=== PATIENT | male | born 1945 | race Hispanic/Latino ===

== ENCOUNTER 2019-10-26 11:30 | Inpatient (IN) | payer MEDICARE ==
[~2019-10-26] VITALS: Ht 170.2 cm; Wt 68.6 kg
[~2019-10-26 11:30] MED LIST: ALBUTEROL SULF8.5 GM NEB; ALBUTEROL0.63 MG/3; CLARITIN10 M1 PO; DIGOXIN125 MCG PO; LOVASTATIN40 MG PO; METOPROLOL TART50 MG PO; OCUVITE TABLET1 EAC1 PO; OMEPRAZOLE40 MG PO; PROBIOTIC DIGE1 EACH PO; VIBERZI PO; WARFARIN SODIUM3 MG PO; WARFARIN SODIUM4 MG PO
[2019-10-26] MEDS ORDERED: CEFTRIAXONE SOD 1 GM/NS 50 ML 50 ML IV STA (11:37)
[2019-10-26] MEDS ORDERED: IPRATROPIUM BROMIDE 0.02% 2.5 ML NEB NEB STA (11:37)
[2019-10-26] MEDS ORDERED: AZITHROMYCIN 500MG/NS 250 ML 250 ML IV STA (11:37)
[2019-10-26] MEDS ORDERED: ALBUTEROL SULF 0.083% NEB SOLN 3 ML NEB NEB STA (11:37)
[2019-10-26] MEDS ORDERED: METOPROLOL TARTRATE INJ 1 MG/ML VIAL IV ONE (11:45)
[2019-10-26] MEDS ORDERED: SODIUM CHLORIDE 0.9% 500ML 500 ML IV STA (11:53)
[2019-10-26] MEDS ORDERED: ONDANSETRON HCL INJ 2MG/ML 2ML 2 MG/ML VIAL IV STA (11:53)
[2019-10-26 12:14] LABS: BASOPHILS # (AUTO) 0.1 (0.0-0.1); BASOPHILS % 0.4 % (0.0-1.0); EOSINOPHILS # (AUTO) 0.1 (0.0-0.4); EOSINOPHILS % 0.6 % (0.0-6.0); HEMATOCRIT 45.5 % (38.2-49.6); HEMOGLOBIN 15.2 g/dL (14.0-18.0); LYMPHOCYTES # (AUTO) 1.1 (1.0-3.2); LYMPHOCYTES % 6.9 % (18.0-39.1); MEAN CORPUSCULAR HEMOGLOBIN 32.1 pg (28-32); MEAN CORPUSCULAR HGB CONC 33.4 g/dL (31-35); MONOCYTES % 6.4 % (4.4-11.3); NEUTROPHILS # (AUTO) 13.2 (2.1-6.9); NEUTROPHILS % 84.9 % (38.7-80.0); PLATELET COUNT 100 x10e3/uL (140-360); RED BLOOD COUNT 4.74 x10e6/uL (4.3-5.7)
--- NOTE | 2019-10-26 12:18 | Diagnostic Imaging Report ---
EXAMINATION: CHEST SINGLE (PORTABLE) INDICATION: Cough, shortness of breath COMPARISON: None FINDINGS: LINES/TUBES:EKG leads overlie the chest. LUNGS:The lungs are well-inflated. There is perihilar fullness and indistinctness of the pulmonary vasculature. No focal consolidation. No ronn pulmonary edema. PLEURA:No pleural effusion or pneumothorax. MEDIASTINUM:The cardiomediastinal silhouette is enlarged. BONES/SOFT TISSUES:No acute osseous injury. ABDOMEN:No free air under the diaphragm. IMPRESSION: Cardiomegaly and central pulmonary venous congestion without ronn airspace edema. Signed by: Jo Ann Marcos MD on 10/26/2019 12:15 PM
[2019-10-26] MEDS ORDERED: DILTIAZEM HCL 5 MG/ML 5 ML VIAL IV STA (12:24)
[2019-10-26] MEDS ORDERED: DILTIAZEM HCL 60 MG TAB PO SCH (12:30)
[2019-10-26 12:31] LABS: INR 1.34; PROTHROMBIN TIME 17.2 seconds (11.9-14.5)
[2019-10-26 12:32] LABS: PARTIAL THROMBOPLASTIN TIME 36.1 seconds (23.8-35.5)
[2019-10-26 12:37] LABS: CLARITY,URINE CLEAR (CLEAR); COLOR,URINE ORANGE (YELLOW)
[2019-10-26 12:38] LABS: BILIRUBIN,URINE SMALL (NEGATIVE); KETONES,URINE TRACE (NEGATIVE); LEUKOCYTE ESTERASE ,URINE NEGATIVE (NEGATIVE); NITRITE,URINE NEGATIVE (NEGATIVE); PROTEIN,URINE DIPSTICK 3+ (NEGATIVE); URINE UROBILINOGEN 0.2 mg/dL (0.2 - 1)
[2019-10-26 12:41] LABS: ALANINE AMINOTRANSFERASE 18 IU/L (0-55); ALBUMIN 4.2 g/dL (3.5-5.0); ALBUMIN/GLOBULIN RATIO 1.1 (0.8-2.0); ALKALINE PHOSPHATASE 191 IU/L (40-150); ANION GAP 17.8 mmol/L (8-16); BLOOD UREA NITROGEN 16 mg/dL (7-26); BUN/CREATININE RATIO 15 (6-25); CALCIUM 9.4 mg/dL (8.4-10.2); CARBON DIOXIDE 26 mmol/L (22-29); CHLORIDE 98 mmol/L (98-107); CREATINE KINASE 61 IU/L (30-200); CREATININE, SERUM 1.08 mg/dL (0.72-1.25); EST GLOMERULAR FILTRATION RATE > 60 ML/MIN (60-); GLUCOSE 138 mg/dL (74-118); POTASSIUM 3.8 mmol/L (3.5-5.1); SODIUM 138 mmol/L (136-145)
[2019-10-26 12:53] LABS: RBC,URINE 0-5 /HPF (0-5); WBC,URINE (MAN) 0-5 /HPF (0-5)
[2019-10-26 12:54] LABS: BACTERIA,URINE FEW /HPF; EPITHELIAL CELLS,URINE FEW /LPF
[2019-10-26 13:00] LABS: THYROID STIMULATING HORMONE 3.599 uIU/mL (0.350-4.940)
[2019-10-26] MEDS ORDERED: ONDANSETRON HCL INJ 2MG/ML 2ML 2 MG/ML VIAL IV PRN (13:00)
[2019-10-26] MEDS ORDERED: SODIUM CHLORIDE 0.9% 500ML 500 ML IV ONE (13:15)
--- NOTE | 2019-10-26 13:32 | Diagnostic Imaging Report ---
Exam: Head CT without contrast History: Dizziness Comparison studies: None Technique: Axial images were obtained from the skull base to the vertex. Coronal and sagittal images reconstructed from the axial data. Dose modulation, iterative reconstruction, and/or weight based adjustment of the mA/kV was utilized to reduce the radiation dose to as low as reasonably achievable. Radiation dose: Total DLP: 921 mGy*cm. Estimated effective dose: DLP x 0.015 Intravenous contrast: None Findings: Scalp: No abnormalities. Bones: No fractures, blastic or lytic lesions. Brain sulci: Mildly. Ventricles: Mild compensatory dilatation. No hydrocephalus. Extra-axial spaces: No masses, no fluid collection. Parenchyma: Chronic cortical/subcortical left inferior parietal infarct in the distal left MCA territory centered along the angular gyrus with encephalomalacia and gliosis. Mild age-related hypodense changes present in the periventricular white matter. Sellar/suprasellar region: No abnormalities. Craniocervical junction: Patent foramen magnum. No Chiari one malformation. Included paranasal sinuses: Clear. Middle ear mastoid cavities: Clear. Incidental findings: Atherosclerotic calcifications in the carotid siphons. IMPRESSION: No acute intracranial abnormalities. Chronic findings: 1. Mild generalized parenchymal volume loss. 2. Chronic left inferior parietal infarct. Signed by: Dr. Timothy See M.D. on 10/26/2019 1:29 PM
--- NOTE | 2019-10-26 13:54 | NUR ---
lactic redrawn and to lab
[2019-10-26] MEDS ORDERED: MECLIZINE HCL 12.5 MG TAB PO ONE (14:00)
[2019-10-26] MEDS: CEFEPIME 2 GM/NS 0.9% 100 ML 100 ML IV SCH (14:13)
[2019-10-26] MEDS ORDERED: DIGOXIN INJ 0.25 MG/ML 2 ML AMP IV NR (14:30)
--- NOTE | 2019-10-26 14:31 | NUR ---
REPEAT LACTIC 2.7 PER LAB MD AWARE
[2019-10-26] MEDS ORDERED: SODIUM CHLORIDE 0.9% 1000ML 1,000 ML ONE (14:41)
[2019-10-26] MEDS ORDERED: SODIUM CHLORIDE 0.9% 1000ML 1,000 ML IV SCH ×2 (14:45→15:55)
--- NOTE | 2019-10-26 14:52 | NUR ---
warm blankets provided and oxygen placed on patient due to oxygen saturation of 95 percent while patient sleeping.
[2019-10-26] MEDS ORDERED: AMIODARONE HCL 150 MG/100 ML BAG IV NR (17:45)
[2019-10-26] MEDS ORDERED: AMIODARONE HCL 900 MG in DEXTROSE 5% 500ML 500 ML IV ONE (18:00)
--- NOTE | 2019-10-26 19:03 | NUR ---
Lala montanez in [facility] - 10/26/19 at 1905 by IRENA report given to Suraj KLINE
--- NOTE | 2019-10-26 19:05 | NUR ---
report given to Reese MOBLEY
--- NOTE | 2019-10-26 19:05 | NUR ---
Lala montanez in [facility] - 10/26/19 at 1905 by IRENA report given to Natan MOBLEY
[2019-10-26 19:08] LABS: CREATINE KINASE MB 0.9 ng/mL (0-5.0)
--- NOTE | 2019-10-26 19:44 | Diagnostic Imaging Report ---
ADDENDUM #1 7.0 cm elliptical shaped fluid collection with Hounsfield units of 10 along the posterior inferior right heart border abutting the diaphragm of unknown clinical significance. This has a nonaggressive appearance and does not appear to be an abscess. This could be due to a benign cystic structure like a duplication cyst or a lymphangioma. Signed by: Dr. iMkael Garcia M.D. on 10/27/2019 10:59 AM ORIGINAL REPORT EXAM: CT Chest WITHOUT contrast INDICATION: Atrial fibrillation. Shortness of breath COMPARISON: 10/26/2019 TECHNIQUE: Chest was scanned utilizing a multidetector helical scanner from the lung apex through the level of the adrenal glands without administration of IV contrast. Absence of intravenous contrast decreases sensitivity for detection of lymphadenopathy and vascular pathology. Coronal and sagittal reformations were obtained. Routine protocol was performed. IV CONTRAST: None COMPLICATIONS: None RADIATION DOSE: Total DLP: 473 mGy*cm Estimated effective dose: (DLP x 0.014 x size factor) mSv CTDIvol has been reviewed. It is below the limits set by the Radiation Protocol Committee (RPC). Dose modulation, iterative reconstruction, and/or weight based adjustment of the mA/kV was utilized to reduce the radiation dose to as low as reasonably achievable. FINDINGS: LINES/ TUBES: None. LUNGS AND AIRWAYS: Groundglass nodular densities in the left upper lung and in the posterior inferior right upper lobe along the fissure could be due to multifocal pneumonia. Chronic appearing change with regions of what appear to be scarring/atelectasis and hyperinflation. Airways are normal. PLEURA: The pleural spaces are clear. HEART AND MEDIASTINUM: The thyroid gland is normal. No mediastinal, hilar or axillary lymphadenopathy. Cardiomegaly with pulmonary vascular congestion. Prosthetic mitral valve with associated artifact. Scattered atherosclerotic calcification of the coronary arteries, aorta and branch vessels. There is no pericardial effusion. 7.0 cm elliptical shaped fluid collection with Hounsfield units of 10 along the posterior inferior right heart border abutting the diaphragm of unknown clinical significance. UPPER ABDOMEN: Small hiatal hernia. BONES: Ankylosis of the spine.. SOFT TISSUES: Unremarkable. IMPRESSION: Cardiomegaly with pulmonary vascular congestion. Groundglass nodular densities in the left upper lung and in the posterior inferior right upper lobe along the fissure could be due to multifocal pneumonia. Chronic appearing change with regions of what appear to be scarring/atelectasis and hyperinflation 7.0 cm elliptical shaped fluid collection with Hounsfield units of 10 along the posterior inferior right heart border abutting the diaphragm of unknown clinical significance. Signed by: Dr. Mikael Garcia M.D. on 10/26/2019 7:41 PM
[2019-10-26] MEDS: ENOXAPARIN SOD INJ 40 MG/0.4 ML SYR SC SCH (19:46)
[2019-10-26] MEDS ORDERED: METOPROLOL TAR100 MG PO (19:49)
[2019-10-26] MEDS ORDERED: FUROSEMIDE40 MG PO (19:50)
[2019-10-26] MEDS ORDERED: eye vitamin PO (19:50)
[2019-10-26] MEDS ORDERED: BENEFIBER1 EAC2 PO (19:57)
[2019-10-26] MEDS ORDERED: AVODART0.5 MG PO (19:57)
[2019-10-26] MEDS ORDERED: ATORVASTATIN CA20 MG PO (19:57)
[2019-10-26] MEDS ORDERED: ACYCLOVIR400 MG PO (19:57)
[2019-10-26] MEDS ORDERED: ALBUTEROL0.63 MG/3 INH (19:57)
[2019-10-26] MEDS ORDERED: SYSTANE 0.3-0.415 ML OU (19:57)
[2019-10-26] MEDS ORDERED: COUMADIN3 MG PO ×2 (19:57)
[2019-10-26] MEDS ORDERED: QUETIAPINE FUMA25 MG PO (19:57)
[2019-10-26] MEDS ORDERED: tylenol arthritis PO (19:57)
[2019-10-26] MEDS ORDERED: PROTONIX20 MG PO (19:57)
[2019-10-26] MEDS ORDERED: FAMOTIDINE 20 MG/2 ML VIAL IV SCH (20:00)
[2019-10-26] MEDS ORDERED: ALBUTEROL SULF 0.083% NEB SOLN 3 ML NEB INH SCH (21:30)
[2019-10-26] MEDS: FUROSEMIDE INJ 10 MG/ML 4 ML VIAL IV SCH (21:31)
[2019-10-26] MEDS ORDERED: ALBUTEROL/IPRATROPIUM 3 ML NEB NEB PRN (23:00)
[2019-10-26 23:21] VITALS: BP 134/87
[2019-10-27] VITALS (8 sets, daily range): BP systolic 108–134; BP diastolic 72–87
--- NOTE | 2019-10-27 00:50 | Consultation ---
DATE OF CONSULTATION: 10/26/2019 Cardiology consult HISTORY OF PRESENT ILLNESS: Mr. Alan Crandall is a 74-year-old male with primary history of mitral valve regurgitation status post mitral clip, atrial fibrillation, on home warfarin, hyperlipidemia, admitted, complaining of shortness of breath. Productive cough accompanied with dizziness and generalized weakness that started 12 hours prior to admission. The patient denies chest pain, nausea or vomiting. The patient denies fever or chills, however, the patient reports contact with sick family members. PAST MEDICAL HISTORY: Mitral valve regurgitation with mitral click, atrial fibrillation, hyperlipidemia. PAST SURGICAL HISTORY: He had a hernia repair and right eye procedure done. SOCIAL HISTORY: Tobacco use long time ago or has stopped long time ago. No alcohol use or any recreational drug use. CURRENT HOME MEDICATIONS: Include: 1. Atorvastatin. 2. Metoprolol 100 mg b.i.d. 3. Furosemide 40 mg b.i.d. 4. Warfarin. 5. Atorvastatin 20 mg daily. 6. Pantoprazole 40 mg daily. PHYSICAL EXAMINATION: VITAL SIGNS: Includes temperature 96.9, pulse is 120, respiratory rate 18, and pulse oximetry were 99% on oxygen 2 L. GENERAL: The patient is well-developed, well-nourished. Mild respiratory distress noted. SKIN: Normal in appearance, texture, and temperature. Warm and dry. EXTREMITIES: Cool to touch. HEENT: Cranium is normocephalic, atraumatic. Pupils are equally round, reactive to light and accommodation. Sclerae are nonicteric. Ears are normal. Mucosa moist. Full range of motion. NECK: Supple. No thyromegaly. JVP measures 8 cm with the patient at 45 degrees. RESPIRATORY: Dyspneic on exertion. LUNGS: Diminished breath sounds all throughout lung sheikh with decreased air entry at the bases. CARDIOVASCULAR: Irregular rate and rhythm. 2/6 diastolic murmur. GASTROINTESTINAL: Soft and tympanic. Mildly distended. Bowel sounds hypoactive. EXTREMITIES: No cyanosis, no edema. Pulses +1 throughout. IMPRESSION: 1. Cardiac dysrhythmia, atrial fibrillation with RVR. History of atrial fibrillation on warfarin. History of mitral valve regurgitation with mitral clip. 2. Acute congestive heart failure with recent echocardiogram showed EF of 35%. BNP 837. Chest x-ray reveals cardiomegaly and central pulmonary venous congestion. PLAN: Mr. Alan Crandall is a 74-year-old admitted with acute heart failure and atrial fibrillation. 1. We will start him on AV bill blockers for rate control and we will start antiarrhythmic amiodarone drip for rhythm control. Restart him on anticoagulation warfarin. 2. Monitor on telemetry. Monitor intake and output and electrolytes, and report any instability of hemodynamics. Further cardiac workup depending on clinical course. Thank you for your consultation. We will continue to follow this patient. Dictated by Roxane De Leon, SHARMIN MD JIMMIE Smith/MODL /[id number]
[2019-10-27] MEDS: ALBUTEROL/IPRATROPIUM 3 ML NEB NEB SCH ×4 (01:15→19:20)
[2019-10-27] MEDS: CEFEPIME 2 GM/NS 0.9% 100 ML 100 ML IV SCH ×2 (02:28→14:48)
[2019-10-27 05:32] LABS: BASOPHILS # (AUTO) 0.1 (0.0-0.1); BASOPHILS % 0.6 % (0.0-1.0); EOSINOPHILS # (AUTO) 0.1 (0.0-0.4); EOSINOPHILS % 0.5 % (0.0-6.0); HEMATOCRIT 48.5 % (38.2-49.6); HEMOGLOBIN 15.4 g/dL (14.0-18.0); LYMPHOCYTES # (AUTO) 2.1 (1.0-3.2); LYMPHOCYTES % 13.6 % (18.0-39.1); MEAN CORPUSCULAR HEMOGLOBIN 31.4 pg (28-32); MEAN CORPUSCULAR HGB CONC 31.8 g/dL (31-35); MONOCYTES # (AUTO) 1.9 (0.2-0.8); MONOCYTES % 12.3 % (4.4-11.3); NEUTROPHILS # (AUTO) 11.4 (2.1-6.9); NEUTROPHILS % 72.2 % (38.7-80.0); PLATELET COUNT 86 x10e3/uL (140-360); RED CELL DISTRIBUTION WIDTH 15.2 % (11.7-14.4)
[2019-10-27 05:39] LABS: INR 1.46; PROTHROMBIN TIME 18.3 seconds (11.9-14.5)
[2019-10-27 05:52] LABS: CREATINE KINASE MB 1.7 ng/mL (0-5.0)
[2019-10-27 06:09] LABS: ALANINE AMINOTRANSFERASE 18 IU/L (0-55); ALBUMIN 3.8 g/dL (3.5-5.0); ALBUMIN/GLOBULIN RATIO 1.1 (0.8-2.0); ALKALINE PHOSPHATASE 159 IU/L (40-150); ANION GAP 18.8 mmol/L (8-16); BLOOD UREA NITROGEN 18 mg/dL (7-26); BUN/CREATININE RATIO 17 (6-25); CALCIUM 8.8 mg/dL (8.4-10.2); CARBON DIOXIDE 21 mmol/L (22-29); CHLORIDE 102 mmol/L (98-107); CHOLESTEROL 157 MD/DL (0-199); CREATININE, SERUM 1.08 mg/dL (0.72-1.25); EST GLOMERULAR FILTRATION RATE > 60 ML/MIN (60-); GLUCOSE 140 mg/dL (74-118); HDL CHOLESTEROL 52 MG/DL (40-60); LDL CHOLESTEROL 86 MG/DL (60-130); POTASSIUM 3.8 mmol/L (3.5-5.1); SODIUM 138 mmol/L (136-145); TRIGLYCERIDES 93 MG/DL (0-149)
[2019-10-27] MEDS ORDERED: ONDANSETRON HCL 4 MG ORAL DISINTEGRATING TAB PO PRN (08:15)
[2019-10-27] MEDS ORDERED: DIGOXIN 0.125 MG TAB PO SCH (09:00)
[2019-10-27] MEDS ORDERED: FUROSEMIDE INJ 10 MG/ML 4 ML VIAL IV ONE (09:30)
[2019-10-27] MEDS: AZITHROMYCIN 500MG/NS 250 ML 250 ML IV SCH (09:57)
[2019-10-27] MEDS: ENOXAPARIN SOD INJ 40 MG/0.4 ML SYR SC SCH ×2 (09:57→17:09)
[2019-10-27] MEDS: METOPROLOL TARTRATE 25 MG TAB PO SCH ×2 (09:57→17:09)
[2019-10-27] MEDS: ACETAMINOPHEN 325 MG TAB PO PRN ×2 (09:57→22:16)
[2019-10-27] MEDS: FUROSEMIDE INJ 10 MG/ML 4 ML VIAL IV SCH ×2 (09:57→21:30)
[2019-10-27] MEDS ORDERED: WARFARIN SOD 2 MG TAB PO SCH ×3 (17:00)
--- NOTE | 2019-10-27 17:09 | History and Physical ---
PRIMARY CARE PHYSICIAN: Boubacar Rodrigez MD. CONSULTANTS: 1. Timothy Talbot MD. 2. Indio Boyce MD. CHIEF COMPLAINT: Rapid ventricular rate, atrial fibrillation. Cough and fever. HISTORY OF PRESENT ILLNESS: A 74-year-old male, who all of a sudden developed some illness with upper respiratory symptoms, but also had palpitation, increasing heart rate. The patient had his eye treatment with his computer lab aide. The patient is otherwise stable. He was having some cough and shortness of breath. He came to the emergency room for evaluation. In the emergency room, the patient had a rapid ventricular rate response. Heart rate in the 120-130. Did not have any fever until this morning. The patient's CT of the chest showed multilobar pneumonia associated with a possible right posterior heart border 7.0 cm fluid collection, possible cyst. The patient is having some cough. He does have pulmonary vascular congestion. Because of his sepsis, lactic acid level was elevated and leukocytosis. The patient was given some IV fluids. The patient is otherwise stable at this time. PAST MEDICAL HISTORY: Coronary artery disease with previous stent. Mitral valve regurgitation with mitral valve repair. Hiatal hernia with hiatal hernia repair. Atrial fibrillation, hypertension, anticoagulant therapy, reflux, osteoarthritis, dyslipidemia. PAST SURGICAL HISTORY: Mitral valve surgical clip. Coronary stent. SOCIAL HISTORY: The patient does not smoke or use alcohol. No recreational drugs. ALLERGIES: NO KNOWN ALLERGIES. HOME MEDICATIONS: List is reviewed. REVIEW OF SYSTEMS: As mentioned above. PHYSICAL EXAMINATION: VITAL SIGNS: Temperature is 99, blood pressure 125/84, pulse rate 133, respirations 22. GENERAL: The patient is comfortable. He is not in any distress. HEENT: Normocephalic and atraumatic. Anicteric. NECK: Supple grossly. PULMONARY: Diminished breath sounds bilaterally with coarses. CARDIOVASCULAR: Atrial fibrillation with rapid rate. EXTREMITIES: No cyanosis or edema. NEUROLOGIC: No gross focal deficit. LABORATORY DATA: Sodium is 138, potassium 3.8, chloride 102, bicarb 21, BUN 18, creatinine 1.0, glucose 140. WBC is 15.7, hemoglobin 15.4, hematocrit 48.5, and platelets is 86. INR is 1.46. IMPRESSION: 1. Sepsis without shock. 2. Multifocal pneumonia. 3. Atrial fibrillation with rapid ventricular rate response. 4. Acute on chronic congestive heart failure most likely we will check echocardiogram, pending. 5. Incidental finding of possible posterior border of the right heart 7.0 cm fluid collection, possible cyst. PLAN: Home medication. Antibiotics. Consultation with Dr. Timothy Talbot. Consultation with Dr. Indio Boyce. Repeated lab work. Check platelet. Monitor platelets closely for any bleed. We will follow up on the patient's status. Nebulizer treatment. Antitussive and Tylenol as needed. MD GIULIANA Rushing/DOYLE /[id number]
--- NOTE | 2019-10-27 17:55 | Consultation ---
DATE OF CONSULTATION: 10/27/2019 Pulmonary Consultation REASON FOR CONSULT: Abnormal CT chest. HISTORY OF PRESENT ILLNESS: Mr. Crandall is a 74-year-old male who presented to the emergency room with complaints of shortness of breath. He has a history of mitral valve regurgitation, has mitral clip, atrial fibrillation. He reported productive cough and generalized weakness. He has been started on IV antibiotics for possibility of pneumonia. CT chest was done, which showed an incidental finding of a cystic structure on the right side of the lung next to the spine. He denies any procedures or surgeries on the right side of the lung. REVIEW OF SYSTEMS: GENERAL: Denies any fever or chills. HEAD: Denies any head trauma. ENT: Denies any earache. CVS: Denies any chest pain. RESPIRATORY: Shortness of breath. GI: Denies any nausea or vomiting. The rest of the review of systems are negative except as in HPI. PAST MEDICAL HISTORY: Mitral regurgitation, status post mitral clip, atrial fibrillation, hypertension. FAMILY AND SOCIAL HISTORY: He does not smoke and does not drink. He smoked 20 years in his life. PHYSICAL EXAMINATION: VITAL SIGNS: Temperature 97.8, pulse of 133, blood pressure 125/84. CHEST: Few crackles in the bases, otherwise clear. HEART: S1, S2 audible. ABDOMEN: Mildly distended. Bowel sounds audible. EXTREMITIES: No pedal edema. NEUROLOGIC: He is awake and alert. LABORATORY DATA: White count 15,000, hemoglobin 15.4, platelets 86. Chemistries within normal limits. Initially, he came in and his lactic acid was 2.7, now it is 1.8. CT chest, I reviewed the images. ASSESSMENT: Mr. Crandall is a 74-year-old male who came in with shortness of breath, possibility of pneumonia, sepsis, and atrial fibrillation. PLAN: Incidental finding of a cystic structure on the right medial border of the lung in the posterior mediastinal area. I have discussed with Radiology about a CT-guided drainage. However, Dr. Mcdonald from [facility] told me that it is a simple cyst and he does not have any suspicion for abscess and he would not recommend drainage of that cyst. This was conveyed to Dr. Lazaro who is the primary physician. Possibly, will need followup in few weeks in the office and repeat of CAT scan if the cyst still persist. We will again have discussion with the patient about possible drainage versus observation. Continue antibiotics for pneumonia. Thank you for this consult. MD YOLIE Nicole/DOYLE /[id number]
[2019-10-27] MEDS: AMIODARONE HCL 900 MG in DEXTROSE 5% 500ML 500 ML IV SCH (21:23)
[2019-10-28] VITALS (8 sets, daily range): BP systolic 106–136; BP diastolic 71–120
[2019-10-28] MEDS: ALBUTEROL/IPRATROPIUM 3 ML NEB NEB SCH ×2 (00:45→07:29)
[2019-10-28] MEDS: CEFEPIME 2 GM/NS 0.9% 100 ML 100 ML IV SCH ×2 (02:15→14:20)
[2019-10-28 07:44] LABS: INR 1.63; PROTHROMBIN TIME 19.9 seconds (11.9-14.5)
[2019-10-28] MEDS ORDERED: METOPROLOL TARTRATE INJ 1 MG/ML VIAL IV PRN (09:00)
[2019-10-28] MEDS ORDERED: AMIODARONE HCL 150 MG/100 ML BAG IV ONE (09:00)
[2019-10-28] MEDS ORDERED: METOPROLOL TARTRATE INJ 1 MG/ML VIAL ONE (09:06)
[2019-10-28] MEDS: ENOXAPARIN SOD INJ 40 MG/0.4 ML SYR SC SCH (09:30)
[2019-10-28] MEDS: AZITHROMYCIN 500MG/NS 250 ML 250 ML IV SCH (09:47)
[2019-10-28] MEDS: METOPROLOL TARTRATE 25 MG TAB PO SCH ×2 (09:47→18:10)
[2019-10-28] MEDS: FUROSEMIDE INJ 10 MG/ML 4 ML VIAL IV SCH ×2 (09:47→20:23)
[2019-10-28] MEDS ORDERED: AMIODARONE HCL 100 ML IV ONE (10:00)
[2019-10-28] MEDS: DILTIAZEM HCL 30 MG TAB PO SCH ×3 (13:10→23:29)
[2019-10-28] MEDS: LEVALBUTEROL HCL SOLN NEBU 1.25 MG/3 ML NEB INH SCH ×2 (13:40→19:30)
[2019-10-28] MEDS: ACETAMINOPHEN 325 MG TAB PO PRN ×2 (15:19→20:50)
[2019-10-28] MEDS: ENOXAPARIN INJ 80 MG/0.8 ML SYR SC SCH (18:09)
[2019-10-28] MEDS: AMIODARONE HCL 900 MG in DEXTROSE 5% 500ML 500 ML IV SCH (20:23)
--- NOTE | 2019-10-28 20:33 | NUR ---
patient in bed, vitals checked, still AFIB, HR is on 120s -130s at this time, non symptomatics, denied any discomfort,Amiodarone drip is on going. will continue to monitor.
[2019-10-29] VITALS (8 sets, daily range): BP systolic 106–135; BP diastolic 54–103
[2019-10-29] MEDS: CEFEPIME 2 GM/NS 0.9% 100 ML 100 ML IV SCH ×2 (02:24→14:16)
[2019-10-29] MEDS: LEVALBUTEROL HCL SOLN NEBU 1.25 MG/3 ML NEB INH SCH ×4 (02:25→19:11)
[2019-10-29] MEDS: ENOXAPARIN INJ 80 MG/0.8 ML SYR SC SCH ×2 (05:10→19:15)
[2019-10-29] MEDS: DILTIAZEM HCL 30 MG TAB PO SCH ×5 (05:11→23:37)
[2019-10-29 05:30] LABS: BASOPHILS # (AUTO) 0.1 (0.0-0.1); BASOPHILS % 0.5 % (0.0-1.0); EOSINOPHILS # (AUTO) 0.4 (0.0-0.4); EOSINOPHILS % 3.3 % (0.0-6.0); HEMATOCRIT 37.5 % (38.2-49.6); HEMOGLOBIN 12.5 g/dL (14.0-18.0); LYMPHOCYTES # (AUTO) 0.8 (1.0-3.2); LYMPHOCYTES % 7.1 % (18.0-39.1); MEAN CORPUSCULAR HEMOGLOBIN 31.6 pg (28-32); MEAN CORPUSCULAR HGB CONC 33.3 g/dL (31-35); MEAN CORPUSCULAR VOLUME 94.7 fL (81-99); MONOCYTES # (AUTO) 1.7 (0.2-0.8); MONOCYTES % 14.5 % (4.4-11.3); NEUTROPHILS # (AUTO) 8.6 (2.1-6.9); NEUTROPHILS % 73.6 % (38.7-80.0); PLATELET COUNT 89 x10e3/uL (140-360); RED BLOOD COUNT 3.96 x10e6/uL (4.3-5.7); RED CELL DISTRIBUTION WIDTH 15.1 % (11.7-14.4)
[2019-10-29 05:49] LABS: ANION GAP 14.9 mmol/L (8-16); BLOOD UREA NITROGEN 16 mg/dL (7-26); BUN/CREATININE RATIO 19 (6-25); CALCIUM 8.7 mg/dL (8.4-10.2); CARBON DIOXIDE 36 mmol/L (22-29); CHLORIDE 91 mmol/L (98-107); CREATININE, SERUM 0.85 mg/dL (0.72-1.25); EST GLOMERULAR FILTRATION RATE > 60 ML/MIN (60-); GLUCOSE 131 mg/dL (74-118); SODIUM 139 mmol/L (136-145)
[2019-10-29 05:54] LABS: POTASSIUM 2.9 mmol/L (3.5-5.1)
--- NOTE | 2019-10-29 06:01 | NUR ---
called and left a message to dr Lazaro, regarding potassium level this morning is 2.9; awaiting for the MD to call back.
[2019-10-29 06:12] LABS: MAGNESIUM 1.5 MG/DL (1.3-2.1); PHOSPHORUS 1.8 MG/DL (2.3-4.7)
--- NOTE | 2019-10-29 06:59 | NUR ---
called and spoke to dr Lazaro regarding potassium level this morning, the MD gave orders for potassium replacements. orders carried out.
[2019-10-29 07:18] LABS: PLATELET ESTIMATE MODERATELY DECREASED
[2019-10-29 07:19] LABS: PLATELET MORPHOLOGY COMMENT FEW LARGE
[2019-10-29] MEDS ORDERED: POTASSIUM CHLORIDE 20 MEQ TAB CR PO ONE ×2 (07:30→09:30)
--- NOTE | 2019-10-29 09:49 | Diagnostic Imaging Report ---
Examination: Single AP view of the chest. COMPARISON: CT October 26, 2019 INDICATION: cough DISCUSSION: Lines/tubes: None. Lungs: Scattered nodular airspace opacities. Pleura: No pleural effusion or pneumothorax. Heart and mediastinum: Cardiomegaly. Right pericardiac fluid collection better seen on prior CT. Bones and soft tissues: No acute bony abnormalities. IMPRESSION: Scattered bronchopneumonia Signed by: Dr. Karl Ulrich M.D. on 10/29/2019 9:46 AM
[2019-10-29] MEDS: AZITHROMYCIN 500MG/NS 250 ML 250 ML IV SCH (10:03)
[2019-10-29] MEDS: FUROSEMIDE INJ 10 MG/ML 4 ML VIAL IV SCH ×2 (10:03→21:34)
[2019-10-29] MEDS: METOPROLOL TARTRATE 25 MG TAB PO SCH ×3 (10:08→19:23)
[2019-10-29] MEDS ORDERED: OXYMETAZOLINE HCL 0.05% NAS 1 SPRAY BTL PRN (10:45)
[2019-10-29] MEDS ORDERED: GUAIFENESIN 200 MG/10 ML UDC PO PRN (13:15)
[2019-10-29] MEDS ORDERED: SODIUM CHLORIDE 0.9% 250ML 250 ML ONE (14:11)
[2019-10-29] MEDS: ACETAMINOPHEN 325 MG TAB PO PRN (14:16)
--- NOTE | 2019-10-29 15:23 | Consultation ---
DATE OF CONSULTATION: 10/28/2019 REASON FOR CONSULTATION: Atrial fibrillation. HISTORY OF PRESENT ILLNESS: This is a 74-year-old gentleman with history of hypertension and history of atrial fibrillation. He states he has been out of rhythm and was diagnosed with atrial fibrillation about 8 years ago, he presented at this time complaining of progressive shortness of breath, found to have multilobar pneumonia and found to have atrial fibrillation with rapid ventricular response. Clinically receiving amiodarone and anticoagulation. Still having heart rate in the 130. The patient states he has never had any particular treatment for atrial fibrillation. Has not seen an electrical assembly technician in the past. REVIEW OF SYSTEMS: CONSTITUTIONAL: As per HPI. CARDIOVASCULAR: As per HPI. RESPIRATORY: Negative. GASTROINTESTINAL: Negative. GENITOURINARY: Negative. MUSCULOSKELETAL: Negative. EYES: Negative. ENT: Negative. ALLERGY/IMMUNOLOGY: Negative. PSYCHIATRIC: Negative. PAST MEDICAL HISTORY: Atrial fibrillation and hypertension. PAST SURGICAL HISTORY: Negative. SOCIAL HISTORY: Denies alcohol. PHYSICAL EXAMINATION: VITAL SIGNS: Blood pressure 118/60, pulse 120, respiration 22, and O2 sats 96%. GENERAL: No acute distress. HEENT: Moist mucous membranes. CARDIOVASCULAR: Irregular. RESPIRATORY: Crackles at the bases and rhonchi. ABDOMEN: Soft and nontender. MUSCULOSKELETAL: 2+ pulses. NEUROLOGIC: No focal deficits. SKIN: No lesions. PSYCHIATRIC: Normal thought process. LABORATORY DATA: EKG, atrial fibrillation with rapid ventricular response. IMPRESSION: 1. Atrial fibrillation, persistent with rapid ventricular response. 2. Multilobar pneumonia. RECOMMENDATIONS: I had a long discussion with the patient. At this time, he was not clear the duration of the atrial fibrillation. However, the patient confirms he has been in atrial fibrillation for about 8 years, which means he has chronic longstanding arrhythmia, which seems to be exacerbated and worsened by current presence of pneumonia, so recommendation is to go for rate control strategy only, no indication for achieving brain rhythm control at this time at least for now. We will go ahead and add Cardizem 30 mg q.6 hours for better rate control, also once the infection is better controlled, hopefully the heart rate will be better controlled and he will feel better. We will follow up closely in clinic in 1-2 weeks for reassessment. Continue anticoagulation. Thank you for letting us participate in Mr. Crandall's health care. MD CHELSEA Rubalcava/DOYLE /[id number]
[2019-10-29] MEDS: GUAIFENESIN 600 MG TAB PO SCH (19:16)
[2019-10-29] MEDS: GUAIFENESIN/CODEINE 10 ML CUP PO PRN (23:37)
[2019-10-30] VITALS (8 sets, daily range): BP systolic 99–137; BP diastolic 67–89
[2019-10-30] MEDS: LEVALBUTEROL HCL SOLN NEBU 1.25 MG/3 ML NEB INH SCH ×5 (01:00→23:58)
[2019-10-30] MEDS: GUAIFENESIN 600 MG TAB PO SCH ×6 (01:00→18:28)
[2019-10-30] MEDS: CEFEPIME 2 GM/NS 0.9% 100 ML 100 ML IV SCH ×2 (02:47→15:20)
[2019-10-30] MEDS: AMIODARONE HCL 900 MG in DEXTROSE 5% 500ML 500 ML IV SCH (05:15)
[2019-10-30] MEDS: DILTIAZEM HCL 30 MG TAB PO SCH ×4 (05:35→23:16)
[2019-10-30] MEDS: ENOXAPARIN INJ 80 MG/0.8 ML SYR SC SCH ×2 (05:35→17:08)
[2019-10-30 06:36] LABS: BASOPHILS # (AUTO) 0.1 (0.0-0.1); BASOPHILS % 0.6 % (0.0-1.0); EOSINOPHILS # (AUTO) 0.5 (0.0-0.4); EOSINOPHILS % 3.9 % (0.0-6.0); HEMOGLOBIN 13.2 g/dL (14.0-18.0); LYMPHOCYTES # (AUTO) 1.7 (1.0-3.2); LYMPHOCYTES % 14.8 % (18.0-39.1); MEAN CORPUSCULAR HEMOGLOBIN 31.9 pg (28-32); MEAN CORPUSCULAR HGB CONC 33.8 g/dL (31-35); MEAN CORPUSCULAR VOLUME 94.2 fL (81-99); MONOCYTES # (AUTO) 1.8 (0.2-0.8); MONOCYTES % 15.8 % (4.4-11.3); NEUTROPHILS # (AUTO) 7.3 (2.1-6.9); NEUTROPHILS % 63.6 % (38.7-80.0); PLATELET COUNT 116 x10e3/uL (140-360); RED BLOOD COUNT 4.14 x10e6/uL (4.3-5.7); RED CELL DISTRIBUTION WIDTH 15.2 % (11.7-14.4)
[2019-10-30 07:03] LABS: ANION GAP 16.7 mmol/L (8-16); BLOOD UREA NITROGEN 16 mg/dL (7-26); BUN/CREATININE RATIO 20 (6-25); CALCIUM 8.9 mg/dL (8.4-10.2); CARBON DIOXIDE 33 mmol/L (22-29); CHLORIDE 90 mmol/L (98-107); EST GLOMERULAR FILTRATION RATE > 60 ML/MIN (60-); GLUCOSE 102 mg/dL (74-118); POTASSIUM 3.7 mmol/L (3.5-5.1); SODIUM 136 mmol/L (136-145)
[2019-10-30] MEDS: FUROSEMIDE INJ 10 MG/ML 4 ML VIAL IV SCH ×2 (09:32→20:21)
[2019-10-30] MEDS: AZITHROMYCIN 500MG/NS 250 ML 250 ML IV SCH (09:33)
[2019-10-30] MEDS: METOPROLOL TARTRATE 25 MG TAB PO SCH ×2 (09:37→17:07)
[2019-10-30] MEDS ORDERED: AMIODARONE HCL 200 MG TAB PO ONE (10:30)
[2019-10-30 16:05] LABS: EOSINOPHILS % (MANUAL) 4 % (0-7); LYMPHOCYTES % (MANUAL) 12 % (19-48); MONOCYTES % (MANUAL) 15 % (3.4-9.0); NEUTROPHILS % (MANUAL) 69 % (40-74); PLATELET ESTIMATE SLIGHTLY DECREASED; PLATELET MORPHOLOGY COMMENT NORMAL; RBC MORPHOLOGY COMMENT NORMAL
[2019-10-30] MEDS: WARFARIN SOD 1 MG TAB PO SCH (17:06)
[2019-10-30] MEDS: GUAIFENESIN/CODEINE 10 ML CUP PO PRN ×2 (18:28→19:07)
--- NOTE | 2019-10-30 19:00 | NUR ---
Report received from Shweta Schrader RN. Pt received resting in bed with eyes open, AAOX4, pt reports no pain or discomfort at this time, no signs of distress noted, pt on room air, SPO2 94%, pts at the bedside, care plan reviewed.
[2019-10-30] MEDS: AMIODARONE HCL 200 MG TAB PO SCH (19:07)
--- NOTE | 2019-10-30 20:21 | NUR ---
Lasix IVP given per md orders at this time, refer to Ambrosio. Medication name, purpose, and desired effects explained to the pts and his .
--- NOTE | 2019-10-30 23:30 | NUR ---
Pt resting in bed with eyes open, reports no pain or discomfort at this time, no signs of distress noted.
[2019-10-31] VITALS (7 sets, daily range): BP systolic 110–128; BP diastolic 65–81
[2019-10-31] MEDS: CEFEPIME 2 GM/NS 0.9% 100 ML 100 ML IV SCH ×2 (02:49→13:16)
--- NOTE | 2019-10-31 02:49 | NUR ---
IV antibiotic hung at this time, medication explained to the pt. Refer to Ambrosio for further details.
[2019-10-31] MEDS: GUAIFENESIN 600 MG TAB PO SCH ×4 (05:21→23:31)
[2019-10-31] MEDS: ENOXAPARIN INJ 80 MG/0.8 ML SYR SC SCH ×2 (05:21→16:07)
[2019-10-31] MEDS: DILTIAZEM HCL 30 MG TAB PO SCH ×4 (05:21→23:31)
--- NOTE | 2019-10-31 05:21 | NUR ---
Morning medications administered including, cardizem, mucinex, and lovenox. Medications named, purpose and desire effect explained, to pts /and to pt. Lovenox administered in pts left lower abdomen.
[2019-10-31 05:29] LABS: BASOPHILS # (AUTO) 0.1 (0.0-0.1); BASOPHILS % 0.9 % (0.0-1.0); EOSINOPHILS # (AUTO) 0.7 (0.0-0.4); EOSINOPHILS % 6.5 % (0.0-6.0); HEMATOCRIT 38.6 % (38.2-49.6); HEMOGLOBIN 13.2 g/dL (14.0-18.0); LYMPHOCYTES # (AUTO) 1.8 (1.0-3.2); LYMPHOCYTES % 17.4 % (18.0-39.1); MEAN CORPUSCULAR HGB CONC 34.2 g/dL (31-35); MEAN CORPUSCULAR VOLUME 93.7 fL (81-99); MONOCYTES # (AUTO) 1.6 (0.2-0.8); MONOCYTES % 15.9 % (4.4-11.3); NEUTROPHILS # (AUTO) 5.9 (2.1-6.9); NEUTROPHILS % 57.4 % (38.7-80.0); PLATELET COUNT 130 x10e3/uL (140-360); RED BLOOD COUNT 4.12 x10e6/uL (4.3-5.7); RED CELL DISTRIBUTION WIDTH 15.3 % (11.7-14.4)
[2019-10-31 05:40] LABS: INR 1.2; PROTHROMBIN TIME 15.5 seconds (11.9-14.5)
[2019-10-31 05:46] LABS: ANION GAP 17.2 mmol/L (8-16); BLOOD UREA NITROGEN 18 mg/dL (7-26); BUN/CREATININE RATIO 23 (6-25); CALCIUM 9.1 mg/dL (8.4-10.2); CARBON DIOXIDE 34 mmol/L (22-29); CHLORIDE 91 mmol/L (98-107); CREATININE, SERUM 0.78 mg/dL (0.72-1.25); EST GLOMERULAR FILTRATION RATE > 60 ML/MIN (60-); GLUCOSE 105 mg/dL (74-118); POTASSIUM 3.2 mmol/L (3.5-5.1); SODIUM 139 mmol/L (136-145)
[2019-10-31] MEDS: LEVALBUTEROL HCL SOLN NEBU 1.25 MG/3 ML NEB INH SCH ×3 (06:55→19:20)
[2019-10-31] MEDS: AMIODARONE HCL 200 MG TAB PO SCH ×2 (08:02→16:07)
[2019-10-31] MEDS: FUROSEMIDE INJ 10 MG/ML 4 ML VIAL IV SCH ×2 (08:02→20:32)
[2019-10-31] MEDS: AZITHROMYCIN 500MG/NS 250 ML 250 ML IV SCH (08:02)
[2019-10-31] MEDS: METOPROLOL TARTRATE 25 MG TAB PO SCH ×3 (08:03→20:32)
[2019-10-31] MEDS ORDERED: POTASSIUM CHLORIDE 10MEQ EA PO ONE (09:15)
[2019-10-31] MEDS: WARFARIN SOD 1 MG TAB PO SCH (16:07)
[2019-10-31] MEDS ORDERED: AMIODARONE HCL 150 MG/100 ML BAG IV ONE (16:45)
[2019-10-31] MEDS ORDERED: AMIODARONE HCL 100 ML IV ONE (17:30)
--- NOTE | 2019-10-31 17:59 | NUR ---
Dr. Boyce informed of low potassium, replacement ordered. PT evaluation ordered as well. Pt ambulated in hallway with walker with Physical Therapy. At rest pt's heart rate is elevated in 120's. Dr. Lee aware and Dr. Chamorro aware. Orders given for amiodarone bolus and increase in Cardizem. Will continue to monitor the patient.
[2019-11-01] VITALS (11 sets, daily range): BP systolic 98–131; BP diastolic 72–86
[2019-11-01] MEDS: LEVALBUTEROL HCL SOLN NEBU 1.25 MG/3 ML NEB INH SCH ×4 (00:20→19:30)
[2019-11-01] MEDS: CEFEPIME 2 GM/NS 0.9% 100 ML 100 ML IV SCH ×3 (02:04→23:37)
[2019-11-01] MEDS: ENOXAPARIN INJ 80 MG/0.8 ML SYR SC SCH ×2 (04:12→17:00)
[2019-11-01] MEDS: GUAIFENESIN 600 MG TAB PO SCH ×4 (05:31→23:37)
[2019-11-01] MEDS: DILTIAZEM HCL 30 MG TAB PO SCH ×4 (05:31→23:44)
[2019-11-01 06:14] LABS: HEMOGLOBIN 13.2 g/dL (14.0-18.0); RED BLOOD COUNT 4.12 x10e6/uL (4.3-5.7)
[2019-11-01 06:15] LABS: HEMATOCRIT 38.6 % (38.2-49.6); LYMPHOCYTES % 18.9 % (18.0-39.1); MEAN CORPUSCULAR HGB CONC 34.2 g/dL (31-35); MEAN CORPUSCULAR VOLUME 93.7 fL (81-99); MONOCYTES % 13.2 % (4.4-11.3); NEUTROPHILS % 58.1 % (38.7-80.0); PLATELET COUNT 151 x10e3/uL (140-360); RED CELL DISTRIBUTION WIDTH 15.1 % (11.7-14.4)
[2019-11-01 06:16] LABS: BASOPHILS % 0.7 % (0.0-1.0); EOSINOPHILS % 6.5 % (0.0-6.0)
[2019-11-01 07:21] LABS: ANION GAP 16.2 mmol/L (8-16); BLOOD UREA NITROGEN 18 mg/dL (7-26); BUN/CREATININE RATIO 21 (6-25); CALCIUM 9.1 mg/dL (8.4-10.2); CARBON DIOXIDE 32 mmol/L (22-29); CHLORIDE 91 mmol/L (98-107); CREATININE, SERUM 0.87 mg/dL (0.72-1.25); EST GLOMERULAR FILTRATION RATE > 60 ML/MIN (60-); GLUCOSE 105 mg/dL (74-118); POTASSIUM 3.2 mmol/L (3.5-5.1); SODIUM 136 mmol/L (136-145)
[2019-11-01 08:14] LABS: BASOPHILS # (AUTO) 0.1 (0.0-0.1); EOSINOPHILS # (AUTO) 0.7 (0.0-0.4); LYMPHOCYTES # (AUTO) 2.1 (1.0-3.2); MONOCYTES # (AUTO) 1.5 (0.2-0.8); NEUTROPHILS # (AUTO) 6.4 (2.1-6.9)
[2019-11-01] MEDS: FUROSEMIDE INJ 10 MG/ML 4 ML VIAL IV SCH ×2 (08:40→20:14)
[2019-11-01] MEDS: AMIODARONE HCL 200 MG TAB PO SCH ×2 (08:40→17:00)
[2019-11-01] MEDS: AZITHROMYCIN 500MG/NS 250 ML 250 ML IV SCH (08:40)
[2019-11-01] MEDS: METOPROLOL TARTRATE 25 MG TAB PO SCH ×3 (08:40→20:15)
[2019-11-01] MEDS ORDERED: POTASSIUM CHLORIDE 20 MEQ TAB CR PO NR (09:00)
[2019-11-01] MEDS ORDERED: BENZONATATE 100 MG CAP PO PRN (09:00)
[2019-11-01] MEDS ORDERED: POTASSIUM CHLORIDE 10MEQ EA PO NR (11:00)
[2019-11-01] MEDS ORDERED: WARFARIN SOD 2 MG TAB PO NR ×2 (11:00→18:00)
[2019-11-01] MEDS: BENZONATATE 100 MG CAP PO SCH ×3 (11:49→20:15)
[2019-11-02] VITALS (9 sets, daily range): BP systolic 91–111; BP diastolic 62–75
[2019-11-02] MEDS: LEVALBUTEROL HCL SOLN NEBU 1.25 MG/3 ML NEB INH SCH ×4 (01:00→19:40)
[2019-11-02] MEDS: DILTIAZEM HCL 30 MG TAB PO SCH ×4 (04:45→23:30)
[2019-11-02] MEDS: ENOXAPARIN INJ 80 MG/0.8 ML SYR SC SCH ×2 (04:45→17:36)
[2019-11-02] MEDS: GUAIFENESIN 600 MG TAB PO SCH ×4 (04:45→23:30)
[2019-11-02 05:27] LABS: BASOPHILS # (AUTO) 0.1 (0.0-0.1); BASOPHILS % 0.8 % (0.0-1.0); EOSINOPHILS # (AUTO) 0.9 (0.0-0.4); HEMATOCRIT 38.6 % (38.2-49.6); HEMOGLOBIN 12.7 g/dL (14.0-18.0); LYMPHOCYTES # (AUTO) 1.8 (1.0-3.2); LYMPHOCYTES % 15.1 % (18.0-39.1); MEAN CORPUSCULAR HEMOGLOBIN 31.4 pg (28-32); MEAN CORPUSCULAR HGB CONC 32.9 g/dL (31-35); MEAN CORPUSCULAR VOLUME 95.5 fL (81-99); MONOCYTES # (AUTO) 1.4 (0.2-0.8); MONOCYTES % 11.8 % (4.4-11.3); NEUTROPHILS # (AUTO) 7.4 (2.1-6.9); PLATELET COUNT 165 x10e3/uL (140-360); RED BLOOD COUNT 4.04 x10e6/uL (4.3-5.7); RED CELL DISTRIBUTION WIDTH 15.1 % (11.7-14.4)
[2019-11-02 05:33] LABS: INR 1.14; PROTHROMBIN TIME 14.9 seconds (11.9-14.5)
[2019-11-02 05:38] LABS: ANION GAP 14.1 mmol/L (8-16); BLOOD UREA NITROGEN 17 mg/dL (7-26); BUN/CREATININE RATIO 17 (6-25); CARBON DIOXIDE 32 mmol/L (22-29); CHLORIDE 93 mmol/L (98-107); CREATININE, SERUM 1.01 mg/dL (0.72-1.25); EST GLOMERULAR FILTRATION RATE > 60 ML/MIN (60-); GLUCOSE 105 mg/dL (74-118); POTASSIUM 4.1 mmol/L (3.5-5.1); SODIUM 135 mmol/L (136-145)
[2019-11-02 08:05] LABS: EOSINOPHILS % (MANUAL) 9 % (0-7); LYMPHOCYTES % (MANUAL) 15 % (19-48); MONOCYTES % (MANUAL) 12 % (3.4-9.0); NEUTROPHILS % (MANUAL) 64 % (40-74); PLATELET ESTIMATE ADEQUATE; PLATELET MORPHOLOGY COMMENT NORMAL; RBC MORPHOLOGY COMMENT NORMAL
[2019-11-02] MEDS ORDERED: WARFARIN SOD 5 MG TAB PO ONE (09:00)
[2019-11-02] MEDS: FUROSEMIDE INJ 10 MG/ML 4 ML VIAL IV SCH ×2 (09:16→20:17)
[2019-11-02] MEDS: AZITHROMYCIN 500MG/NS 250 ML 250 ML IV SCH (09:17)
[2019-11-02] MEDS: METOPROLOL TARTRATE 25 MG TAB PO SCH ×3 (09:17→21:12)
[2019-11-02] MEDS: BENZONATATE 100 MG CAP PO SCH ×3 (09:17→21:12)
[2019-11-02] MEDS: AMIODARONE HCL 200 MG TAB PO SCH ×2 (09:17→17:36)
[2019-11-02] MEDS: CEFEPIME 2 GM/NS 0.9% 100 ML 100 ML IV SCH (14:23)
--- NOTE | 2019-11-02 15:33 | NUR ---
Nutrition Screen Note RD Recommendation for Physician: - Continue current diet Plan of Care: RD following, monitoring for tolerance and adequacy Nutrition reason for involvement: LOS Primary Diagnose(s): Afib RVR, bronchitis PMH: CAD with stent, MVR, hiatal hernia with repair, Afib, HTN, reflux, OA, dyslipidemia Ht: 67 in Wt: 158 lb BMI: 24.7 kg/m2 IBW: [address] Assessment: (11/02) 74 YOM admitted for Afib with RVR, seen today per LOS. Pt's at bedside provided translation. Pt reports good appetite and po intake. Pt denies wt loss, reports UBW of 154#- no wt loss noted. Pt denies any difficulties chewing or swallowing. Pt denies any N/V/C/D. Pt and with no questions or concerns at time of visit. Pt discussed during am rounds. Chart reviewed. Labs and meds reviewed. Will monitor and continue to follow. Current Diet: Cardiac Malnutrition Evaluation (11/02/19) The patient does not meet criteria for a specified degree of malnutrition at this time. Will re-evaluate at follow-up as appropriate. Diet Education Needs Assessment: Diet education not indicated. Diet tolerance: tolerating po Nutrition Care Level: low Signed: Юлия Mcwilliams RD, LD, [facility]
--- NOTE | 2019-11-02 20:15 | NUR ---
patient in the recliner, awake alert oriented, on bed side, meds scheduled given, vitals checked, no distress noted and denied any discomfort at this time, will continue to monitor.
[2019-11-03] MEDS: LEVALBUTEROL HCL SOLN NEBU 1.25 MG/3 ML NEB INH SCH ×4 (01:30→19:41)
[2019-11-03] MEDS: CEFEPIME 2 GM/NS 0.9% 100 ML 100 ML IV SCH ×2 (01:30→14:34)
[2019-11-03 04:04] VITALS: BP 113/62
[2019-11-03] MEDS: DILTIAZEM HCL 30 MG TAB PO SCH ×3 (05:20→16:33)
[2019-11-03] MEDS: ENOXAPARIN INJ 80 MG/0.8 ML SYR SC SCH ×2 (05:20→16:26)
[2019-11-03] MEDS: GUAIFENESIN 600 MG TAB PO SCH ×3 (05:20→16:33)
[2019-11-03 05:56] LABS: INR 1.12; PROTHROMBIN TIME 14.7 seconds (11.9-14.5)
[2019-11-03 08:00] VITALS: BP 111/52
[2019-11-03] MEDS ORDERED: WARFARIN SOD 5 MG TAB PO ONE (09:30)
[2019-11-03] MEDS: AMIODARONE HCL 200 MG TAB PO SCH ×2 (10:03→16:26)
[2019-11-03] MEDS: BENZONATATE 100 MG CAP PO SCH ×3 (10:03→21:30)
[2019-11-03] MEDS: METOPROLOL TARTRATE 25 MG TAB PO SCH ×3 (10:03→21:30)
[2019-11-03 11:30] VITALS: BP 147/68
[2019-11-03] MEDS: FUROSEMIDE 40 MG TAB PO SCH (11:32)
[2019-11-03 16:00] VITALS: BP 117/61
--- NOTE | 2019-11-03 16:27 | NUR ---
PT SIGNED CHOICE FOR [facility]. STATES HAS WHEELCHAIR AND WALKER DOES NOT NEED ANY DME. FAXED CLINICALS TO [phone]. WILL NEED TO FAX DISCHARGE SUMMARY UPON DISCHARGE.
[2019-11-03 20:00] VITALS: BP 118/76
[2019-11-04] VITALS (7 sets, daily range): BP systolic 108–143; BP diastolic 56–82
[2019-11-04] MEDS: GUAIFENESIN 600 MG TAB PO SCH ×4 (00:25→17:33)
[2019-11-04] MEDS: DILTIAZEM HCL 30 MG TAB PO SCH ×2 (00:29→05:49)
[2019-11-04] MEDS: LEVALBUTEROL HCL SOLN NEBU 1.25 MG/3 ML NEB INH SCH ×4 (01:30→20:00)
[2019-11-04] MEDS ORDERED: SODIUM CHLORIDE 0.9% 250ML 250 ML ONE (01:48)
[2019-11-04] MEDS: CEFEPIME 2 GM/NS 0.9% 100 ML 100 ML IV SCH (02:01)
[2019-11-04 05:11] LABS: BASOPHILS # (AUTO) 0.1 (0.0-0.1); EOSINOPHILS # (AUTO) 0.6 (0.0-0.4); EOSINOPHILS % 5.5 % (0.0-6.0); HEMATOCRIT 38.9 % (38.2-49.6); HEMOGLOBIN 13.1 g/dL (14.0-18.0); LYMPHOCYTES # (AUTO) 1.7 (1.0-3.2); MEAN CORPUSCULAR HEMOGLOBIN 31.3 pg (28-32); MEAN CORPUSCULAR HGB CONC 33.7 g/dL (31-35); MEAN CORPUSCULAR VOLUME 93.1 fL (81-99); MONOCYTES # (AUTO) 1.4 (0.2-0.8); NEUTROPHILS % 60.6 % (38.7-80.0); PLATELET COUNT 182 x10e3/uL (140-360); RED BLOOD COUNT 4.18 x10e6/uL (4.3-5.7); RED CELL DISTRIBUTION WIDTH 14.7 % (11.7-14.4)
[2019-11-04 05:19] LABS: INR 1.21; PROTHROMBIN TIME 16.1 seconds (11.9-14.5)
[2019-11-04 05:28] LABS: ANION GAP 14.5 mmol/L (8-16); BLOOD UREA NITROGEN 20 mg/dL (7-26); BUN/CREATININE RATIO 19 (6-25); CARBON DIOXIDE 31 mmol/L (22-29); CHLORIDE 93 mmol/L (98-107); CREATININE, SERUM 1.07 mg/dL (0.72-1.25); EST GLOMERULAR FILTRATION RATE > 60 ML/MIN (60-); GLUCOSE 100 mg/dL (74-118); POTASSIUM 3.5 mmol/L (3.5-5.1); SODIUM 135 mmol/L (136-145)
[2019-11-04] MEDS: ENOXAPARIN INJ 80 MG/0.8 ML SYR SC SCH ×2 (05:40→17:33)
[2019-11-04] MEDS: AMIODARONE HCL 200 MG TAB PO SCH ×2 (08:54→17:32)
[2019-11-04] MEDS: FUROSEMIDE 40 MG TAB PO SCH ×2 (08:54→12:24)
[2019-11-04] MEDS: BENZONATATE 100 MG CAP PO SCH ×3 (08:54→19:52)
[2019-11-04] MEDS: METOPROLOL TARTRATE 25 MG TAB PO SCH ×3 (08:55→19:52)
[2019-11-04] MEDS ORDERED: WARFARIN SOD 5 MG TAB PO ONE ×2 (09:15→17:00)
[2019-11-04] MEDS: DILTIAZEM HCL 180 MG CAP ER PO SCH (10:44)
--- NOTE | 2019-11-04 16:39 | NUR ---
RD received consult for nutrition education regarding diet and warfarin Nutrition Education Learner(s): pt, family member Barriers: no barriers identified Cultural/Language Modifications: Pt only speaks German. German handout was provided to patient. Family member at bedside translated information provided to patient. Readiness: acceptance Method: explanation/ discussion, handout Topics: Vitamin K and warfarin Understanding/Compliance: pt and family member verbalized understanding Signed: Luciana Prakash RD, [place]
[2019-11-04] MEDS: POTASSIUM CHLORIDE 10MEQ EA PO SCH (17:32)
--- NOTE | 2019-11-04 22:00 | NUR ---
patient received to room 291 via wheelchair from [facility] at this time. vss. no c/o pain noted. telemetry continues to A fib. noted at the bedside. patient/ instructed to call for assistance when needed.
[2019-11-05] MEDS: LEVALBUTEROL HCL SOLN NEBU 1.25 MG/3 ML NEB INH SCH ×4 (01:20→18:45)
[2019-11-05 04:45] VITALS: BP 116/78
[2019-11-05] MEDS: ENOXAPARIN INJ 80 MG/0.8 ML SYR SC SCH ×2 (05:00→17:06)
[2019-11-05] MEDS: GUAIFENESIN 600 MG TAB PO SCH ×4 (05:28→17:23)
--- NOTE | 2019-11-05 07:00 | NUR ---
PATIENT IS AWAKE, ALERT, AND IN STABLE CONDITION WITH NO S/S OF RESPIRATORY DISTRESS. PATIENT DENIES PAIN. TELEMETRY APPLIED. PATIENT REFUSING ASSISTANCE OUT OF BED; PRESENT IN THE ROOM. CALL LIGHT IS WITHIN REACH, PATIENT INSTRUCTED TO CALL FOR ASSISTANCE NEEDED.
[2019-11-05 07:35] LABS: INR 1.32; PROTHROMBIN TIME 17.3 seconds (11.9-14.5)
[2019-11-05 07:36] VITALS: BP 144/66
[2019-11-05 07:43] VITALS: BP 144/66
[2019-11-05] MEDS: FUROSEMIDE 40 MG TAB PO SCH ×2 (09:17→12:12)
[2019-11-05] MEDS: AMIODARONE HCL 200 MG TAB PO SCH ×2 (09:18→17:05)
[2019-11-05] MEDS: DILTIAZEM HCL 180 MG CAP ER PO SCH (09:18)
[2019-11-05] MEDS: METOPROLOL TARTRATE 25 MG TAB PO SCH ×3 (09:20→20:32)
[2019-11-05] MEDS: POTASSIUM CHLORIDE 10MEQ EA PO SCH ×2 (09:20→17:06)
[2019-11-05] MEDS: BENZONATATE 100 MG CAP PO SCH ×3 (09:21→20:32)
[2019-11-05] MEDS ORDERED: WARFARIN SOD 5 MG TAB PO NR (11:15)
[2019-11-05 11:26] VITALS: BP 108/66
[2019-11-05 15:08] VITALS: BP 108/58
--- NOTE | 2019-11-05 18:50 | NUR ---
PATIENT IN STABLE CONDITION WITH NO S/S OF RESPIRATORY DISTRESS- NO PAIN VOICED. TELEMETRY APPLIED. PRESENT IN ROOM. CALL LIGHT IS WITHIN REACH, PATIENT INSTRUCTED TO CALL FOR ASSISTANCE NEEDED. BEDSIDE SHIFT REPORT GIVEN TO ONCOMING NURSE.
--- NOTE | 2019-11-05 19:15 | NUR ---
patient received awake, alert, sitting up in chair. noted at patients side. no c/o pain noted. respirations even and unlabored. patient/ instructed to call for assistance when needed.
[2019-11-05 20:00] VITALS: BP 129/66
[2019-11-06] VITALS (8 sets, daily range): BP systolic 102–149; BP diastolic 62–76
[2019-11-06] MEDS: LEVALBUTEROL HCL SOLN NEBU 1.25 MG/3 ML NEB INH SCH ×4 (00:22→19:30)
[2019-11-06] MEDS: ENOXAPARIN INJ 80 MG/0.8 ML SYR SC SCH ×2 (05:00→17:53)
[2019-11-06] MEDS: GUAIFENESIN 600 MG TAB PO SCH ×4 (05:54→17:53)
--- NOTE | 2019-11-06 07:10 | NUR ---
PATIENT IS IN STABLE CONDITION WITH NO S/S OF RESPIRATORY DISTRESS. NO PAIN VOICED. TELEMETRY APPLIED. PRESENT IN THE ROOM. CALL LIGHT IS WITHIN REACH OF PATIENT- PATIENT INSTRUCTED TO CALL FOR ASSISTANCE NEEDED.
[2019-11-06 07:19] LABS: INR 1.67; PROTHROMBIN TIME 20.9 seconds (11.9-14.5)
[2019-11-06] MEDS: FUROSEMIDE 40 MG TAB PO SCH ×2 (08:35→12:10)
[2019-11-06] MEDS: BENZONATATE 100 MG CAP PO SCH ×3 (08:36→20:56)
[2019-11-06] MEDS: POTASSIUM CHLORIDE 10MEQ EA PO SCH ×2 (08:36→16:24)
[2019-11-06] MEDS: METOPROLOL TARTRATE 25 MG TAB PO SCH ×3 (08:36→20:56)
[2019-11-06] MEDS: DILTIAZEM HCL 180 MG CAP ER PO SCH (08:36)
[2019-11-06] MEDS: AMIODARONE HCL 200 MG TAB PO SCH ×2 (08:36→16:24)
[2019-11-06] MEDS ORDERED: WARFARIN SOD 2.5 MG TAB PO NR (10:00)
--- NOTE | 2019-11-06 15:10 | NUR ---
Visit made by the Spiritual Care Department Pastoral Visitor, Ozzie Horne. PV provided pastoral presence, hospitality, communion, and supportive listening. Pastoral Visitor informed pt/family of the scope of [employer] and availability. YAHAIRA JENNINGS Service Cashier Spiritual Care Department O: [phone] Pager: [phone] ([phone] number calling from)
--- NOTE | 2019-11-06 19:20 | NUR ---
walking rounds complete, pt alert resp even and no c/o pain when asked, at bedside, call light in reach.
--- NOTE | 2019-11-06 19:21 | NUR ---
PATIENT IS SITTING IN THE CHAIR- IN STABLE CONDITION WITH NO S/S OF RESPIRATORY DISTRESS. NO PAIN VOICED. TELEMETRY APPLIED. PRESENT IN THE ROOM. CALL LIGHT IS WITHIN REACH OF PATIENT- PATIENT INSTRUCTED TO CALL FOR ASSISTANCE NEEDED. BEDSIDE SHIFT REPORT GIVEN TO ONCOMING NURSE.
[2019-11-07] VITALS: BP 113/66
[2019-11-07] MEDS: LEVALBUTEROL HCL SOLN NEBU 1.25 MG/3 ML NEB INH SCH ×3 (00:05→13:12)
[2019-11-07] MEDS: GUAIFENESIN 600 MG TAB PO SCH ×3 (00:05→12:09)
--- NOTE | 2019-11-07 02:32 | NUR ---
pt in upright position, resting comfortably, family member at bedside, no distress noted call light in reach.
[2019-11-07 04:00] VITALS: BP 124/69
[2019-11-07] MEDS: ENOXAPARIN INJ 80 MG/0.8 ML SYR SC SCH ×2 (05:03→13:50)
[2019-11-07 05:54] LABS: BASOPHILS # (AUTO) 0.1 (0.0-0.1); BASOPHILS % 1.2 % (0.0-1.0); EOSINOPHILS # (AUTO) 0.4 (0.0-0.4); EOSINOPHILS % 4.4 % (0.0-6.0); HEMATOCRIT 42.1 % (38.2-49.6); HEMOGLOBIN 13.8 g/dL (14.0-18.0); LYMPHOCYTES % 20.8 % (18.0-39.1); MEAN CORPUSCULAR HEMOGLOBIN 31.6 pg (28-32); MEAN CORPUSCULAR HGB CONC 32.8 g/dL (31-35); MEAN CORPUSCULAR VOLUME 96.3 fL (81-99); MONOCYTES # (AUTO) 1.1 (0.2-0.8); MONOCYTES % 11.2 % (4.4-11.3); NEUTROPHILS # (AUTO) 5.6 (2.1-6.9); NEUTROPHILS % 57.7 % (38.7-80.0); PLATELET COUNT 251 x10e3/uL (140-360); RED BLOOD COUNT 4.37 x10e6/uL (4.3-5.7); RED CELL DISTRIBUTION WIDTH 14.9 % (11.7-14.4)
[2019-11-07 06:08] LABS: INR 1.89; PROTHROMBIN TIME 23.1 seconds (11.9-14.5)
[2019-11-07 06:34] LABS: ANION GAP 15.7 mmol/L (8-16); BLOOD UREA NITROGEN 22 mg/dL (7-26); BUN/CREATININE RATIO 22 (6-25); CALCIUM 9.3 mg/dL (8.4-10.2); CARBON DIOXIDE 30 mmol/L (22-29); CHLORIDE 97 mmol/L (98-107); CREATININE, SERUM 0.99 mg/dL (0.72-1.25); EST GLOMERULAR FILTRATION RATE > 60 ML/MIN (60-); GLUCOSE 97 mg/dL (74-118); POTASSIUM 4.7 mmol/L (3.5-5.1); SODIUM 138 mmol/L (136-145)
--- NOTE | 2019-11-07 07:17 | NUR ---
bedside rounding, complete , pt stable at shift change.
[2019-11-07 07:45] VITALS: BP 122/72
[2019-11-07 08:17] VITALS: BP 122/72
[2019-11-07] MEDS: FUROSEMIDE 40 MG TAB PO SCH ×2 (08:25→12:00)
[2019-11-07] MEDS: AMIODARONE HCL 200 MG TAB PO SCH (08:26)
[2019-11-07] MEDS: DILTIAZEM HCL 180 MG CAP ER PO SCH (08:26)
[2019-11-07] MEDS: POTASSIUM CHLORIDE 10MEQ EA PO SCH (08:26)
[2019-11-07] MEDS: BENZONATATE 100 MG CAP PO SCH (08:27)
[2019-11-07] MEDS: METOPROLOL TARTRATE 25 MG TAB PO SCH (08:27)
[2019-11-07] MEDS ORDERED: WARFARIN SOD 5 MG TAB PO NR (10:30)
[2019-11-07] MEDS ORDERED: TESSALON PERLE100 MG PO (11:13)
[2019-11-07] MEDS ORDERED: ZOFRAN4 MG PO (11:13)
[2019-11-07] MEDS ORDERED: WARFARIN SODIUM3 MG PO (11:14)
[2019-11-07] MEDS ORDERED: LOPRESSOR25 MG PO (11:15)
[2019-11-07] MEDS ORDERED: WARFARIN SODIUM2 MG PO (11:15)
[2019-11-07] MEDS ORDERED: DILTIAZEM 24HR180 M1 PO (11:17)
[2019-11-07] MEDS ORDERED: AMIODARONE HCL100 MG PO (11:18)
[2019-11-07] MEDS ORDERED: K DUR10 MEQ PO (11:18)
[2019-11-07 11:45] VITALS: BP 114/62
--- NOTE | 2019-11-07 14:24 | NUR ---
Patient discharged home, Dose of Lovenox and Coumadin 7.5mg given, prescription and discharge instruction given, Patient and his aware about f/up appointment tomorrow in Dr Yaron Talbot's office, IV canula removed with tip intact, no ss of infiltration noted, denies any pain, no distress, transported via wheelchair to [facility]
[2019-11-07] MEDS ORDERED: WARFARIN SOD 2.5 MG TAB PO ONE (14:35)
--- NOTE | 2019-11-08 03:21 | Discharge Summary ---
PRIMARY CARE PHYSICIAN: Dr. Boubacar Rodrigez. CONSULTANTS: 1. Dr. Indio Boyce. 2. Dr. Jay Chamorro. 3. Dr. Timothy Talbot. FINAL DIAGNOSES: 1. Atrial fibrillation with rapid ventricular rate response. 2. Acute on chronic systolic dysfunction, congestive heart failure. 3. Status post bronchial pneumonia. 4. Anticoagulant therapy for atrial fibrillation. 5. History of valvular disease. SUMMARY: The patient is a 74-year-old male, who came to the hospital with increasing shortness of breath. The patient also has rapid ventricular rate with atrial fibrillation, he has also cough and fever. The patient started on antibiotics. Chest x-ray and CT scan showed multifocal pneumonia, bronchial pneumonia and the patient was started on treatment. He was septic lactic acid level fever and rapid heart rate. The patient at baseline with mitral valve surgical clips and also heart coronary stent. He was subtherapeutic on his anticoagulant therapy on admission. The patient placed on IV amiodarone drip and subsequently on oral medication. The patient is otherwise stable at this time. I discussed with the patient at length. On admission, the patient's INR was 1.34. The patient was on inadequate warfarin level. The patient now is on 7.5 during the hospitalization and his INR today is 1.89. He is getting Lovenox as well. The patient is completing the course of his antibiotic treatment. He is getting Lovenox and also amiodarone along with that his rate control medication has been adjusted. At this time, he is stable. He will go home today. He will get the warfarin and the Lovenox prior to discharge today. I instructed the patient to follow up with Dr. Timothy Talbot tomorrow for PT/INR check. The patient is otherwise stable. On his home medication, he will continue with the following. All his medication will continue except for metoprolol 100 mg which has been adjusted. He was on alternating 1.5 and 3 mg of the warfarin instruction, but that will be stopped for now. New prescription is Tessalon Perles as needed for cough, Zofran as needed for nausea and vomiting, Lopressor 50 mg twice a day, diltiazem CD 180 mg daily, potassium 10 mEq b.i.d., amiodarone 200 mg daily. For his warfarin, he will take combine of 5 and 2 mg to make it 7 mg daily. The patient will need to have his warfarin adjustment. The patient is otherwise stable. Discussed with the patient and spouse at length and also the patient's son as well. The patient has been cleared for discharge. MD GIULIANA Rushing/DOYLE /[id number]
== END 2019-11-07 14:19 | disposition home or self-care (01) | DRG 871 ==
LOC: ER 11:30 → ERHOLD 12:53 → IMCU 22:44 → MED/SURG3 11-04 21:57
PROVIDERS: ADMIT Internal Medicine; ATTEND Internal Medicine
DX: A41.9 Sepsis, unspecified organism (principal); J15.9 Unspecified bacterial pneumonia; I50.33 Acute on chronic diastolic (congestive) heart failure; I48.20 Chronic atrial fibrillation, unspecified; J20.9 Acute bronchitis, unspecified; I25.2 Old myocardial infarction; E78.5 Hyperlipidemia, unspecified; N40.0 Benign prostatic hyperplasia without lower urinary tract symptoms; Z79.01 Long term (current) use of anticoagulants; K21.9 Gastro-esophageal reflux disease without esophagitis; J98.4 Other disorders of lung; Z95.5 Presence of coronary angioplasty implant and graft; Z95.818 Presence of other cardiac implants and grafts; I11.0 Hypertensive heart disease with heart failure
CPT/HCPCS: 36415; 70450; 71045; 71250; 80048; 80053; 80061; 81001; 82550; 82553; 82948; 83605; 83735; 83880; 84100; 84443; 84484; 85025; 85610; 85730; 87040; 87086; 87400; 93005; 93306; 93880; 94640; 94660; 96366; 97139; 99285; J0456; J0696; J1650; J1940; J2405; J7030; J7040; J7050; J7060; Q0162

== ENCOUNTER 2019-11-11 14:19 | Inpatient (IN) | payer MEDICARE ==
[~2019-11-11] VITALS: Ht 153.9 cm; Wt 71.9 kg
[~2019-11-11 14:19] MED LIST changes: +ACYCLOVIR400 MG PO; +ALBUTEROL0.63 MG/3 INH; +AMIODARONE HCL100 MG PO; +ATORVASTATIN CA20 MG PO; +AVODART0.5 MG PO; +BENEFIBER1 EAC2 PO; +COUMADIN3 MG PO; +DILTIAZEM 24HR180 M1 PO; +FUROSEMIDE40 MG PO; +K DUR10 MEQ PO; +LOPRESSOR25 MG PO; +METOPROLOL TAR100 MG PO; +PROTONIX20 MG PO; +QUETIAPINE FUMA25 MG PO; +SYSTANE 0.3-0.415 ML OU; +TESSALON PERLE100 MG PO; +WARFARIN SODIUM2 MG PO; +ZOFRAN4 MG PO; +eye vitamin PO; +tylenol arthritis PO
[2019-11-11] MEDS ORDERED: PANTOPRAZOLE 40 MG 10ML VIAL IV STA (15:09)
[2019-11-11] MEDS ORDERED: SODIUM CHLORIDE 0.9% 1000ML 1,000 ML IV STA (15:09)
[2019-11-11] MEDS ORDERED: ONDANSETRON HCL INJ 2MG/ML 2ML 2 MG/ML VIAL IV STA (15:09)
[2019-11-11] MEDS ORDERED: MORPHINE SULFATE 2 MG/ML SYR 1ML IV STA (15:09)
[2019-11-11 15:51] LABS: BASOPHILS # (AUTO) 0.1 (0.0-0.1); BASOPHILS % 0.5 % (0.0-1.0); EOSINOPHILS # (AUTO) 0.1 (0.0-0.4); EOSINOPHILS % 0.9 % (0.0-6.0); HEMATOCRIT 36.9 % (38.2-49.6); HEMOGLOBIN 12.4 g/dL (14.0-18.0); LYMPHOCYTES # (AUTO) 1.3 (1.0-3.2); LYMPHOCYTES % 8.7 % (18.0-39.1); MEAN CORPUSCULAR HEMOGLOBIN 32.2 pg (28-32); MEAN CORPUSCULAR HGB CONC 33.6 g/dL (31-35); MEAN CORPUSCULAR VOLUME 95.8 fL (81-99); MONOCYTES # (AUTO) 1.6 (0.2-0.8); MONOCYTES % 10.4 % (4.4-11.3); NEUTROPHILS # (AUTO) 11.8 (2.1-6.9); NEUTROPHILS % 77.7 % (38.7-80.0); PLATELET COUNT 292 x10e3/uL (140-360); RED BLOOD COUNT 3.85 x10e6/uL (4.3-5.7); RED CELL DISTRIBUTION WIDTH 14.8 % (11.7-14.4)
[2019-11-11 15:57] LABS: CLARITY,URINE CLEAR (CLEAR); COLOR,URINE YELLOW (YELLOW); LEUKOCYTE ESTERASE ,URINE NEGATIVE (NEGATIVE); NITRITE,URINE NEGATIVE (NEGATIVE); PROTEIN,URINE DIPSTICK NEGATIVE (NEGATIVE)
[2019-11-11 15:58] LABS: BILIRUBIN,URINE NEGATIVE (NEGATIVE); KETONES,URINE NEGATIVE (NEGATIVE); URINE UROBILINOGEN 0.2 mg/dL (0.2 - 1)
[2019-11-11 16:01] LABS: INR 3.96
[2019-11-11 16:02] LABS: PARTIAL THROMBOPLASTIN TIME 79.2 seconds (23.8-35.5)
[2019-11-11 16:05] LABS: PROTHROMBIN TIME 41.9 seconds (11.9-14.5)
[2019-11-11 16:09] LABS: BACTERIA,URINE MODERATE /HPF; EPITHELIAL CELLS,URINE FEW /LPF; HYALINE CASTS 0-1 (0-1); RBC,URINE 0-5 /HPF (0-5)
[2019-11-11 16:09] LABS: ALANINE AMINOTRANSFERASE 36 IU/L (0-55); ALBUMIN 3.6 g/dL (3.5-5.0); ALBUMIN/GLOBULIN RATIO 0.9 (0.8-2.0); ALKALINE PHOSPHATASE 142 IU/L (40-150); BLOOD UREA NITROGEN 21 mg/dL (7-26); BUN/CREATININE RATIO 18 (6-25); CALCIUM 8.9 mg/dL (8.4-10.2); CARBON DIOXIDE 26 mmol/L (22-29); CHLORIDE 98 mmol/L (98-107); CREATININE, SERUM 1.16 mg/dL (0.72-1.25); EST GLOMERULAR FILTRATION RATE > 60 ML/MIN (60-); GLUCOSE 109 mg/dL (74-118); MAGNESIUM 1.9 MG/DL (1.3-2.1); SODIUM 134 mmol/L (136-145)
[2019-11-11] MEDS ORDERED: IOPAMIDOL 370 MG/ML 200 ML INFUS..BTL INJ ONE (17:15)
[2019-11-11] MEDS ORDERED: SODIUM CHLORIDE 0.9% 50ML 50 ML ONE (17:15)
--- NOTE | 2019-11-11 17:38 | Diagnostic Imaging Report ---
CT of the abdomen and pelvis, with contrast, 11/11/2019. History: Right inguinal pain for 2-3 days. Comparison: CT chest 10/26/2019. Technique: Multidetector CT scanning of the abdomen and pelvis was performed from the level of the lung bases to the inferior pubic rami after intravenous administration of contrast. Coronal and sagittal multiplanar reformations were obtained. RADIATION DOSE: Total DLP: 677 mGy*cm Dose modulation, iterative reconstruction, and/or weight based adjustment of the mA/kV was utilized to reduce the radiation dose to as low as reasonably achievable. Discussion: LUNG BASES: The heart is enlarged. Prosthetic mitral valve is noted. There is bibasilar atelectasis. Loculated right basilar medial pleural effusion has decreased in size. ABDOMEN: Simple cysts are present in both kidneys, measuring 4 cm on the right and 2.4 cm on the left. There is no evidence of nephrolithiasis or hydronephrosis. The liver, gallbladder, biliary tree, spleen, pancreas, adrenal glands, and kidneys are normal. The hepatic vein, portal vein, and splenic vein are patent. The abdominal aorta is within normal limits for size. Evaluation bowel is limited without oral contrast. A small hiatal hernia is present. Scattered diverticuli are present throughout the colon without evidence of adjacent inflammation. There is no bowel dilatation. There is no evidence of adenopathy or free fluid. PELVIS: A 7.3 x 6.9 cm oval hyperdensity is present in the right iliopsoas muscle with a fluid-fluid level, but no evidence of active contrast extravasation from well enhanced adjacent pelvic vessels. The bladder, prostate, and seminal vesicles are normal in appearance. There is no evidence of free fluid or adenopathy. BONES AND SOFT TISSUES: Degenerative changes are present throughout the lumbar spine and both hips without evidence of lytic or sclerotic lesion. IMPRESSION: 1. Large right iliopsoas hematoma without evidence of active bleed, most likely related to anticoagulation associated with prosthetic mitral valve. 2. Bilateral benign renal cysts. 3. Small hiatal hernia. 4. Colonic diverticulosis without evidence of diverticulitis. 5. Decreased size of fluid collection along the right medial lung base consistent with a loculated effusion. Signed by: Lucien Fernandez on 11/11/2019 5:35 PM
[2019-11-11] MEDS ORDERED: PHYTONADIONE 10 MG/ML AMP PO ONE ×2 (18:30→22:00)
[2019-11-11 20:41] LABS: BAND NEUTROPHILS % (MANUAL) 1 %; LYMPHOCYTES % (MANUAL) 6 % (19-48); MONOCYTES % (MANUAL) 13 % (3.4-9.0); MYELOCYTES % (MANUAL) 1 % (0-0); NEUTROPHILS % (MANUAL) 78 % (40-74)
[2019-11-11 20:42] LABS: ANISOCYTOSIS SLIGHT; HYPOCHROMASIA MODERATE; PLATELET ESTIMATE ADEQUATE; PLATELET MORPHOLOGY COMMENT NORMAL; POIKILOCYTOSIS MODERATE; RBC MORPHOLOGY COMMENT NORMAL
[2019-11-11] MEDS: FAMOTIDINE 20 MG/2 ML VIAL IV SCH (21:42)
[2019-11-11 22:33] VITALS: BP 135/64
--- NOTE | 2019-11-11 22:36 | NUR ---
PER ER NURSE SIERRA KERR WANTED VIT K TO BE GIVEN PO. SPOKE TO PHARMACIST PHUONG AT THIS TIME, PHUONG SAID OK TO GIVE VIT K PO.
[2019-11-11] MEDS: MORPHINE SULFATE 2 MG/ML SYR 1ML IV PRN (22:52)
[2019-11-11] MEDS: ONDANSETRON HCL INJ 2MG/ML 2ML 2 MG/ML VIAL IV PRN (22:52)
[2019-11-11 23:01] VITALS: BP 135/64
[2019-11-11 23:12] VITALS: BP 135/64
[2019-11-12] VITALS (8 sets, daily range): BP systolic 99–127; BP diastolic 59–78
[2019-11-12 00:21] LABS: BASOPHILS # (AUTO) 0.1 (0.0-0.1); BASOPHILS % 0.4 % (0.0-1.0); EOSINOPHILS # (AUTO) 0.1 (0.0-0.4); EOSINOPHILS % 0.6 % (0.0-6.0); HEMATOCRIT 33.7 % (38.2-49.6); HEMOGLOBIN 11.2 g/dL (14.0-18.0); LYMPHOCYTES # (AUTO) 1.1 (1.0-3.2); LYMPHOCYTES % 8.2 % (18.0-39.1); MEAN CORPUSCULAR HEMOGLOBIN 31.6 pg (28-32); MEAN CORPUSCULAR HGB CONC 33.2 g/dL (31-35); MEAN CORPUSCULAR VOLUME 95.2 fL (81-99); MONOCYTES # (AUTO) 1.5 (0.2-0.8); MONOCYTES % 10.6 % (4.4-11.3); NEUTROPHILS % 78.4 % (38.7-80.0); PLATELET COUNT 266 x10e3/uL (140-360); RED BLOOD COUNT 3.54 x10e6/uL (4.3-5.7); RED CELL DISTRIBUTION WIDTH 14.6 % (11.7-14.4)
[2019-11-12 01:00] LABS: CREATINE KINASE 1416 IU/L (30-200)
[2019-11-12] MEDS: MORPHINE SULFATE 2 MG/ML SYR 1ML IV PRN ×4 (03:35→18:25)
--- NOTE | 2019-11-12 05:35 | NUR ---
PAGED DR. DEVRIES REGARDING PATIENT HEART RATE READING 120'S-140 PER TELE. AWAITING CALL BACK.
--- NOTE | 2019-11-12 06:12 | NUR ---
SPOKE TO DR. DEVRIES AT THIS TIME. NEW ORDERS RECEIVED TO CONTINUE HOME MED METOPROLOL, CARDIZEM AND AMIODARONE.
[2019-11-12] MEDS: METOPROLOL TARTRATE 25 MG TAB PO SCH ×2 (06:27→17:00)
[2019-11-12 07:40] LABS: BASOPHILS # (AUTO) 0.1 (0.0-0.1); BASOPHILS % 0.6 % (0.0-1.0); EOSINOPHILS # (AUTO) 0.2 (0.0-0.4); EOSINOPHILS % 1.5 % (0.0-6.0); HEMATOCRIT 32.8 % (38.2-49.6); HEMOGLOBIN 11.1 g/dL (14.0-18.0); LYMPHOCYTES # (AUTO) 0.9 (1.0-3.2); LYMPHOCYTES % 7.1 % (18.0-39.1); MEAN CORPUSCULAR HEMOGLOBIN 32.4 pg (28-32); MEAN CORPUSCULAR HGB CONC 33.8 g/dL (31-35); MEAN CORPUSCULAR VOLUME 95.6 fL (81-99); MONOCYTES # (AUTO) 1.6 (0.2-0.8); MONOCYTES % 12.1 % (4.4-11.3); NEUTROPHILS % 76.9 % (38.7-80.0); PLATELET COUNT 265 x10e3/uL (140-360); RED BLOOD COUNT 3.43 x10e6/uL (4.3-5.7); RED CELL DISTRIBUTION WIDTH 14.8 % (11.7-14.4)
[2019-11-12 07:51] LABS: INR 2.99; PROTHROMBIN TIME 33.4 seconds (11.9-14.5)
[2019-11-12 07:52] LABS: PARTIAL THROMBOPLASTIN TIME 78.1 seconds (23.8-35.5)
[2019-11-12 08:00] LABS: ALANINE AMINOTRANSFERASE 30 IU/L (0-55); ALBUMIN 3.2 g/dL (3.5-5.0); ALBUMIN/GLOBULIN RATIO 0.9 (0.8-2.0); ALKALINE PHOSPHATASE 119 IU/L (40-150); ANION GAP 14.7 mmol/L (8-16); BLOOD UREA NITROGEN 14 mg/dL (7-26); BUN/CREATININE RATIO 16 (6-25); CALCIUM 8.7 mg/dL (8.4-10.2); CARBON DIOXIDE 26 mmol/L (22-29); CHLORIDE 99 mmol/L (98-107); CREATININE, SERUM 0.89 mg/dL (0.72-1.25); EST GLOMERULAR FILTRATION RATE > 60 ML/MIN (60-); GLUCOSE 99 mg/dL (74-118); POTASSIUM 3.7 mmol/L (3.5-5.1); SODIUM 136 mmol/L (136-145)
[2019-11-12 08:06] LABS: CREATINE KINASE MB 1.6 ng/mL (0-5.0)
[2019-11-12] MEDS: FAMOTIDINE 20 MG/2 ML VIAL IV SCH (10:00)
[2019-11-12] MEDS: AMIODARONE HCL 200 MG TAB PO SCH (10:00)
[2019-11-12] MEDS: DILTIAZEM HCL 180 MG CAP ER PO SCH (10:00)
[2019-11-12] MEDS ORDERED: BISACODYL 10 MG SUPP PR PRN (10:45)
[2019-11-12] MEDS ORDERED: LEVALBUTEROL HCL SOLN NEBU 1.25 MG/3 ML NEB INH PRN (10:45)
[2019-11-12] MEDS ORDERED: ONDANSETRON HCL 4 MG ORAL DISINTEGRATING TAB PO PRN (10:45)
[2019-11-12] MEDS ORDERED: IPRATROPIUM BROMIDE 0.02% 2.5 ML NEB NEB PRN (10:45)
[2019-11-12] MEDS: ONDANSETRON HCL INJ 2MG/ML 2ML 2 MG/ML VIAL IV PRN ×2 (11:42→18:25)
[2019-11-12] MEDS: FAMOTIDINE 20 MG TAB PO SCH (16:30)
[2019-11-12] MEDS: SENNA-S TABLET PO SCH (17:00)
[2019-11-12] MEDS: Propylene Glycol/Peg 400 (Systane 0.3-0.4% Eye Drops) OP SCH (17:00)
[2019-11-12] MEDS: FUROSEMIDE 40 MG TAB PO SCH (17:00)
--- NOTE | 2019-11-12 18:24 | History and Physical ---
PRIMARY CARE PHYSICIAN: Dr. Boubacar Rodrigez. PRINTING PRESS OPERATOR APPRENTICE: Dr. Timothy Talbot. CHIEF COMPLAINT: Right groin pain. CT scan in the emergency room shows hematoma of the right iliopsoas muscle. INR on admission was 3.96. HISTORY OF PRESENT ILLNESS: The patient is a 74-year-old male with anticoagulant therapy due to atrial fibrillation and also due to valvular disease. He has a mitral valve clip. The patient was previously admitted here because of uncontrolled atrial fibrillation rate and the patient subsequently went home with amiodarone and adjustment dose of his warfarin. The patient took at least five days for his warfarin level, INR of 1.8. When he went home, he went on a 7 mg daily. The patient found to have increase in his INR on admission of 3.96. However, because of the right groin pain, the patient had a CT of abdomen and pelvis, showed that the large right iliopsoas hematoma without evidence of active bleed. The patient was having progressive pain slowly. His hemoglobin and hematocrit are 11.1 and 32.8. On discharge when the patient went home on the , was 13.8 hemoglobin. The patient was otherwise stable. Other than the pain, he did not have any shortness of breath or chest pain. He is comfortable at this time. PAST MEDICAL HISTORY: Including atrial fibrillation recently, rate controlled. History of mitral valve clips. Coronary artery disease with previous multiple stents. Hiatal hernia repair. Hypertension. Anticoagulant therapy. Reflux history. Osteoarthritis. Dyslipidemia. PAST SURGICAL HISTORY: Mitral valve clips as mentioned previously. Coronary stent. SOCIAL HISTORY: The patient does not smoke or use alcohol. No regular drug use. ALLERGIES: NO KNOWN ALLERGIES. HOME MEDICATIONS: List is reviewed. The patient was on warfarin 7 mg daily. PHYSICAL EXAMINATION: VITAL SIGNS: Temperature is 98, blood pressure 118/66, pulse rate is 100, respirations 20. GENERAL: The patient is not in acute distress. He is awake. HEENT: Normocephalic and atraumatic. Anicteric. NECK: Supple grossly. PULMONARY: Diminished breath sounds without any wheezing or rales. CARDIOVASCULAR: Atrial fibrillation rate controlled. ABDOMEN: Soft, multiple bruises from previous Lovenox. Right groin tenderness without any gross outside hematoma or bruising on the lower extremity. NEUROLOGIC: There is no focal deficit. LABORATORY DATA: WBC is 13.0, hemoglobin 11.1, hematocrit 32.8, and platelets are 265. Chemistry; sodium is 132, potassium 3.7, chloride 99, bicarb 26, BUN 14, creatinine 0.8, glucose is 99. Creatine kinase is 1799 down to 1160. Cardiac enzyme, troponin I negative. CT scan of abdomen and pelvis showed that the patient had a large right psoas hematoma 7.3 x 6.9 cm. IMPRESSION: 1. Hematoma of the right psoas muscle, right groin area secondary to anticoagulant therapy. 2. Anticoagulant therapy for atrial fibrillation and mitral valve clips. 3. Multiple baseline problems. PLAN: Pain control. Check PT/INR. Off the warfarin for now. Consultation with Dr. Timothy Talbot. The patient currently with pain medication, resume physical therapy may be in 1 to 2 days once the INR is diminished. Discussed with the patient and son at length. Son translated to the patient and all questions were answered. Discussed regarding warfarin treatment and fluctuating of the blood thinning process. We will get a dietitian to see the patient again prior to his discharge at this time. He did see his dietitian on last admission and discharged. We will continue to monitor the patient closely. We will discuss with Dr. Timothy Talbot, his retail pharmacist. MD GIULIANA Rushing/DOYLE /[id number]
--- NOTE | 2019-11-12 18:44 | Consultation ---
DATE OF CONSULTATION: Cardiology Consultation CHIEF COMPLAINT: Abdominal pain. HISTORY OF PRESENT ILLNESS: The patient is a 74-year-old with a long-standing atrial fibrillation, who came to the emergency room with some pain in his right flank. A CT scan was done, which demonstrated a retroperitoneal hematoma. The patient has had no chest pain. The patient does have some dyspnea. The patient has had no nausea, no vomiting, no fevers. PAST MEDICAL HISTORY: Significant for, 1. Chronic atrial fibrillation. 2. Previous mitral valve clip placement for mitral regurgitation. 3. Recent admission for pneumonia. 4. Chronic obstructive pulmonary disease. SOCIAL HISTORY: The patient does not drink and does not smoke. FAMILY HISTORY: There is a known family history of coronary artery disease. PHYSICAL EXAMINATION: GENERAL: The patient is a well-developed, well-nourished male, in no obvious distress. VITAL SIGNS: Include a temperature of 98.8, pulse was 104, blood pressure 130/70. HEAD, EARS, EYES, NOSE, AND THROAT: The patient's cranium was normocephalic and atraumatic. Extraocular muscles were intact. Sclerae were anicteric. Pupils were equal, round, and reactive to light. There is no pallor or cyanosis of the oral mucosa. There was no erythema or edema of the throat. NECK: Supple. No jugular venous distention. No carotid bruits. CHEST: Demonstrated rhonchi bilaterally. CARDIAC: Demonstrated an irregularly irregular rhythm with a 2/6 systolic murmur. ABDOMEN: Demonstrated good bowel sounds. No tenderness. EXTREMITIES: There is no clubbing, no cyanosis, and no edema. NEUROLOGICAL: The patient was alert and oriented x3. Cranial nerves II through XII were intact. Motor strength was +5/+5 in all limbs. The patient's EKG demonstrated atrial fibrillation. IMPRESSION: The patient is a 74-year-old with chronic atrial fibrillation, who developed a retroperitoneal hematoma from Coumadin. RECOMMENDATIONS: 1. The patient's Coumadin will need to be held. 2. I would favor discontinuing the patient's Coumadin and using the Xarelto 15 mg once a day since the level of the Xarelto can be better controlled. 3. The patient's amiodarone and metoprolol will need to be continued for rate control. MD ISHMAEL Smith/MARIOL /[id number] cc: Silvio Lazaro MD
[2019-11-12] MEDS: HYDROCODONE/APAP 7.5MG-325MG 1 EA TAB PO PRN (20:35)
[2019-11-12] MEDS: QUETIAPINE FUMARATE 25 MG TAB PO SCH (21:33)
[2019-11-12] MEDS: ATORVASTATIN 20 MG TAB PO SCH (21:33)
[2019-11-13] VITALS (8 sets, daily range): BP systolic 106–120; BP diastolic 62–90
[2019-11-13] MEDS: HYDROCODONE/APAP 7.5MG-325MG 1 EA TAB PO PRN ×4 (05:03→21:59)
[2019-11-13 06:30] LABS: BASOPHILS # (AUTO) 0.1 (0.0-0.1); BASOPHILS % 0.6 % (0.0-1.0); EOSINOPHILS # (AUTO) 0.2 (0.0-0.4); EOSINOPHILS % 1.8 % (0.0-6.0); HEMATOCRIT 30.9 % (38.2-49.6); HEMOGLOBIN 10.2 g/dL (14.0-18.0); LYMPHOCYTES # (AUTO) 1.5 (1.0-3.2); LYMPHOCYTES % 11.6 % (18.0-39.1); MEAN CORPUSCULAR HEMOGLOBIN 31.6 pg (28-32); MEAN CORPUSCULAR VOLUME 95.7 fL (81-99); MONOCYTES # (AUTO) 1.7 (0.2-0.8); MONOCYTES % 13.1 % (4.4-11.3); NEUTROPHILS # (AUTO) 8.9 (2.1-6.9); NEUTROPHILS % 70.8 % (38.7-80.0); PLATELET COUNT 269 x10e3/uL (140-360); RED BLOOD COUNT 3.23 x10e6/uL (4.3-5.7); RED CELL DISTRIBUTION WIDTH 14.6 % (11.7-14.4)
[2019-11-13 06:35] LABS: INR 1.77; PROTHROMBIN TIME 21.9 seconds (11.9-14.5)
[2019-11-13 06:37] LABS: ANION GAP 15.5 mmol/L (8-16); BLOOD UREA NITROGEN 16 mg/dL (7-26); BUN/CREATININE RATIO 16 (6-25); CALCIUM 8.5 mg/dL (8.4-10.2); CARBON DIOXIDE 27 mmol/L (22-29); CHLORIDE 97 mmol/L (98-107); EST GLOMERULAR FILTRATION RATE > 60 ML/MIN (60-); GLUCOSE 109 mg/dL (74-118); POTASSIUM 3.5 mmol/L (3.5-5.1); SODIUM 136 mmol/L (136-145)
[2019-11-13] MEDS: PANTOPRAZOLE SOD 40 MG TABEC PO SCH (07:30)
[2019-11-13] MEDS: FAMOTIDINE 20 MG TAB PO SCH ×2 (07:30→16:40)
[2019-11-13 08:54] LABS: EOSINOPHILS % (MANUAL) 1 % (0-7); LYMPHOCYTES % (MANUAL) 12 % (19-48); MONOCYTES % (MANUAL) 9 % (3.4-9.0); NEUTROPHILS % (MANUAL) 78 % (40-74); RBC MORPHOLOGY COMMENT NORMAL
[2019-11-13 08:55] LABS: PLATELET ESTIMATE ADEQUATE; PLATELET MORPHOLOGY COMMENT NORMAL
[2019-11-13] MEDS: DUTASTERIDE 0.5 MG CAP PO SCH (09:00)
[2019-11-13] MEDS: LORATADINE 10 MG TAB PO SCH (09:00)
[2019-11-13] MEDS ORDERED: POTASSIUM CHLORIDE 10MEQ EA PO SCH (09:00)
[2019-11-13] MEDS: AMIODARONE HCL 200 MG TAB PO SCH ×2 (09:00→16:38)
[2019-11-13] MEDS: METOPROLOL TARTRATE 25 MG TAB PO SCH ×2 (09:00→16:39)
[2019-11-13] MEDS: FUROSEMIDE 40 MG TAB PO SCH ×2 (09:00→16:39)
[2019-11-13] MEDS: Propylene Glycol/Peg 400 (Systane 0.3-0.4% Eye Drops) OP SCH ×2 (09:00→16:38)
[2019-11-13] MEDS: SENNA-S TABLET PO SCH ×2 (09:00→16:39)
[2019-11-13] MEDS: DILTIAZEM HCL 180 MG CAP ER PO SCH (09:00)
[2019-11-13] MEDS: ACYCLOVIR 200 MG CAP PO SCH (09:00)
[2019-11-13] MEDS ORDERED: MAGNESIUM HYDROXIDE 30 ML UDC PO PRN (11:00)
--- NOTE | 2019-11-13 11:45 | NUR ---
PT MEDICATED AT 1125AM FOR PAIN PER MD ORDER, PT STATES THAT THIS IS NOT THE CORRECT MEDICATION, "THE DR GAVE ME TYLENOL 3 LAST NIGHT AND THIS MORNING AND THAT MEDICINE WORKED , THIS IS NOT WORKING", PT EDUCATED VIA TRANSLATION OF ANOTHER NURSE THAT THE MEDICATION DOES NOT WORK IMMEDIATELY, PT STILL INSIST THAT THE WRONG MEDICATION IS BEING GIVEN DUE TO THE "DR GIVING TO HIM LAST NIGHT"", AND AGAIN VIA TRANSLATION IPAD, PT WAS EDUCATED ON MEDICATION AND WHAT WAS ORDERED, PT STILL STATES "WRONG MEDICATION", CHARGE NURSE IN ROOM , SPOKE WITH PATIENT AND SON
--- NOTE | 2019-11-13 16:40 | NUR ---
PT MEDICATED PER MD ORDER FOR PAIN , PT ALSO GIVEN ALL 5 PM MEDICATIONS , PT INSIST ON TAKING PICTURE OF ALL MEDICATIONS GIVEN,
[2019-11-13] MEDS: ATORVASTATIN 20 MG TAB PO SCH (21:10)
[2019-11-13] MEDS: QUETIAPINE FUMARATE 25 MG TAB PO SCH (21:10)
[2019-11-14] VITALS (7 sets, daily range): BP systolic 96–126; BP diastolic 58–79
[2019-11-14] MEDS: HYDROCODONE/APAP 7.5MG-325MG 1 EA TAB PO PRN ×3 (04:58→16:50)
[2019-11-14 06:37] LABS: BASOPHILS # (AUTO) 0.1 (0.0-0.1); BASOPHILS % 0.6 % (0.0-1.0); EOSINOPHILS # (AUTO) 0.3 (0.0-0.4); EOSINOPHILS % 2.1 % (0.0-6.0); HEMATOCRIT 30.6 % (38.2-49.6); HEMOGLOBIN 10.3 g/dL (14.0-18.0); LYMPHOCYTES # (AUTO) 1.4 (1.0-3.2); LYMPHOCYTES % 11.1 % (18.0-39.1); MEAN CORPUSCULAR HEMOGLOBIN 32.2 pg (28-32); MEAN CORPUSCULAR HGB CONC 33.7 g/dL (31-35); MEAN CORPUSCULAR VOLUME 95.6 fL (81-99); MONOCYTES # (AUTO) 1.7 (0.2-0.8); MONOCYTES % 13.4 % (4.4-11.3); NEUTROPHILS # (AUTO) 8.8 (2.1-6.9); NEUTROPHILS % 69.6 % (38.7-80.0); PLATELET COUNT 246 x10e3/uL (140-360); RED CELL DISTRIBUTION WIDTH 14.9 % (11.7-14.4)
--- NOTE | 2019-11-14 07:00 | NUR ---
RECEIVED BEDSIDE SHIFT REPORT FROM LATESHA KLINE. PT DENIES NEEDS AT THIS TIME.
[2019-11-14] MEDS: Propylene Glycol/Peg 400 (Systane 0.3-0.4% Eye Drops) OP SCH ×2 (09:00→17:00)
[2019-11-14] MEDS ORDERED: POTASSIUM CHLORIDE 10MEQ EA PO SCH (09:00)
[2019-11-14] MEDS: FAMOTIDINE 20 MG TAB PO SCH ×2 (09:02→17:07)
[2019-11-14] MEDS: PANTOPRAZOLE SOD 40 MG TABEC PO SCH (09:02)
[2019-11-14] MEDS: LORATADINE 10 MG TAB PO SCH (09:03)
[2019-11-14] MEDS: FUROSEMIDE 40 MG TAB PO SCH ×2 (09:03→17:07)
[2019-11-14] MEDS: DUTASTERIDE 0.5 MG CAP PO SCH (09:03)
[2019-11-14] MEDS: AMIODARONE HCL 200 MG TAB PO SCH ×2 (09:03→17:07)
[2019-11-14] MEDS: DILTIAZEM HCL 180 MG CAP ER PO SCH (09:03)
[2019-11-14] MEDS: ACYCLOVIR 200 MG CAP PO SCH (09:04)
[2019-11-14] MEDS: METOPROLOL TARTRATE 25 MG TAB PO SCH ×2 (09:04→17:08)
[2019-11-14] MEDS: SENNA-S TABLET PO SCH ×2 (09:04→17:08)
--- NOTE | 2019-11-14 20:25 | NUR ---
INITIAL ASSESSMENT COMPLETE, FAMILY AT BEDSIDE, PT WITHOUT PAIN AT THIS TIME, NO EDEMA TO RIGHT LEG, VS WNL, CONTINUE TO MONITOR PT
[2019-11-14] MEDS: QUETIAPINE FUMARATE 25 MG TAB PO SCH (21:00)
[2019-11-14] MEDS: ATORVASTATIN 20 MG TAB PO SCH (21:00)
[2019-11-15] VITALS (8 sets, daily range): BP systolic 93–118; BP diastolic 54–83
--- NOTE | 2019-11-15 03:00 | NUR ---
PT ASLEEP, VS WNL, CALL LIGHT IN REACH, NO DISTRESS NOTED, FAMILY AT BEDSIDE, CONTINUE TO MONITOR PT
[2019-11-15 05:57] LABS: BASOPHILS # (AUTO) 0.1 (0.0-0.1); BASOPHILS % 0.7 % (0.0-1.0); EOSINOPHILS # (AUTO) 0.3 (0.0-0.4); EOSINOPHILS % 2.7 % (0.0-6.0); HEMATOCRIT 29.5 % (38.2-49.6); HEMOGLOBIN 9.9 g/dL (14.0-18.0); LYMPHOCYTES # (AUTO) 1.3 (1.0-3.2); LYMPHOCYTES % 13.2 % (18.0-39.1); MEAN CORPUSCULAR HGB CONC 33.6 g/dL (31-35); MEAN CORPUSCULAR VOLUME 95.5 fL (81-99); MONOCYTES # (AUTO) 1.6 (0.2-0.8); MONOCYTES % 15.3 % (4.4-11.3); NEUTROPHILS # (AUTO) 6.5 (2.1-6.9); NEUTROPHILS % 63.9 % (38.7-80.0); PLATELET COUNT 228 x10e3/uL (140-360); RED BLOOD COUNT 3.09 x10e6/uL (4.3-5.7)
[2019-11-15 06:07] LABS: INR 1.25; PROTHROMBIN TIME 16.5 seconds (11.9-14.5)
--- NOTE | 2019-11-15 07:00 | NUR ---
RECEIVED BEDSIDE SHIFT REPORT FROM GINO KLINE. PT DENIES NEEDS AT THIS TIME.
[2019-11-15 08:08] LABS: LYMPHOCYTES % (MANUAL) 16 % (19-48); MONOCYTES % (MANUAL) 10 % (3.4-9.0); NEUTROPHILS % (MANUAL) 74 % (40-74)
[2019-11-15 08:09] LABS: PLATELET ESTIMATE ADEQUATE; PLATELET MORPHOLOGY COMMENT NORMAL; RBC MORPHOLOGY COMMENT NORMAL
[2019-11-15] MEDS: Propylene Glycol/Peg 400 (Systane 0.3-0.4% Eye Drops) OP SCH ×2 (08:58→17:00)
[2019-11-15] MEDS: FAMOTIDINE 20 MG TAB PO SCH ×2 (08:58→17:27)
[2019-11-15] MEDS: PANTOPRAZOLE SOD 40 MG TABEC PO SCH (08:58)
[2019-11-15] MEDS: DUTASTERIDE 0.5 MG CAP PO SCH (08:58)
[2019-11-15] MEDS: AMIODARONE HCL 200 MG TAB PO SCH ×2 (08:59→17:27)
[2019-11-15] MEDS: LORATADINE 10 MG TAB PO SCH (08:59)
[2019-11-15] MEDS: FUROSEMIDE 40 MG TAB PO SCH ×2 (08:59→17:27)
[2019-11-15] MEDS: ACYCLOVIR 200 MG CAP PO SCH (08:59)
[2019-11-15] MEDS: SENNA-S TABLET PO SCH ×2 (08:59→17:27)
[2019-11-15] MEDS: METOPROLOL TARTRATE 25 MG TAB PO SCH ×2 (08:59→17:28)
[2019-11-15] MEDS: DILTIAZEM HCL 180 MG CAP ER PO SCH (08:59)
[2019-11-15] MEDS: POTASSIUM CHLORIDE 10MEQ EA PO SCH ×2 (09:01→17:29)
[2019-11-15] MEDS: HYDROCODONE/APAP 7.5MG-325MG 1 EA TAB PO PRN (17:41)
[2019-11-15] MEDS: ATORVASTATIN 20 MG TAB PO SCH (20:59)
[2019-11-15] MEDS: QUETIAPINE FUMARATE 25 MG TAB PO SCH (20:59)
[2019-11-16] VITALS (8 sets, daily range): BP systolic 100–138; BP diastolic 58–69
--- NOTE | 2019-11-16 07:10 | NUR ---
The pt. was received in bed awake and without c/o pain or discomfort.
[2019-11-16] MEDS: PANTOPRAZOLE SOD 40 MG TABEC PO SCH (07:51)
[2019-11-16] MEDS: FAMOTIDINE 20 MG TAB PO SCH ×2 (07:51→16:43)
[2019-11-16 08:45] LABS: BASOPHILS # (AUTO) 0.1 (0.0-0.1); BASOPHILS % 0.6 % (0.0-1.0); EOSINOPHILS # (AUTO) 0.2 (0.0-0.4); EOSINOPHILS % 2.1 % (0.0-6.0); HEMATOCRIT 32.2 % (38.2-49.6); HEMOGLOBIN 10.6 g/dL (14.0-18.0); LYMPHOCYTES # (AUTO) 1.4 (1.0-3.2); LYMPHOCYTES % 12.8 % (18.0-39.1); MEAN CORPUSCULAR HEMOGLOBIN 31.7 pg (28-32); MEAN CORPUSCULAR HGB CONC 32.9 g/dL (31-35); MEAN CORPUSCULAR VOLUME 96.4 fL (81-99); MONOCYTES # (AUTO) 1.3 (0.2-0.8); MONOCYTES % 12.3 % (4.4-11.3); NEUTROPHILS # (AUTO) 7.2 (2.1-6.9); NEUTROPHILS % 67.9 % (38.7-80.0); PLATELET COUNT 257 x10e3/uL (140-360); RED BLOOD COUNT 3.34 x10e6/uL (4.3-5.7); RED CELL DISTRIBUTION WIDTH 15.2 % (11.7-14.4)
[2019-11-16] MEDS: LORATADINE 10 MG TAB PO SCH (09:00)
[2019-11-16] MEDS: Propylene Glycol/Peg 400 (Systane 0.3-0.4% Eye Drops) OP SCH ×2 (09:00→16:43)
[2019-11-16] MEDS: DUTASTERIDE 0.5 MG CAP PO SCH (09:34)
[2019-11-16] MEDS: DILTIAZEM HCL 180 MG CAP ER PO SCH (09:34)
[2019-11-16] MEDS: SENNA-S TABLET PO SCH ×2 (09:35→16:44)
[2019-11-16] MEDS: ACYCLOVIR 200 MG CAP PO SCH (09:35)
[2019-11-16] MEDS: METOPROLOL TARTRATE 25 MG TAB PO SCH ×2 (09:35→16:44)
[2019-11-16] MEDS: POTASSIUM CHLORIDE 10MEQ EA PO SCH ×2 (09:35→16:43)
[2019-11-16] MEDS: FUROSEMIDE 40 MG TAB PO SCH ×2 (09:35→16:43)
[2019-11-16] MEDS: AMIODARONE HCL 200 MG TAB PO SCH ×2 (09:35→16:43)
--- NOTE | 2019-11-16 15:21 | NUR ---
Nutrition Screen Note RD Recommendation for Physician: - Continue current diet Plan of Care: RD following, monitoring for tolerance and adequacy Nutrition reason for involvement: LOS Primary Diagnose(s): hematoma of R iliopsoas muscle PMH: Afib, CAD with stents, hiatal hernia, HTN, OA, dyslipidemia Ht: 60.6 in Wt: 158.44 lb BMI: 30.3 kg/m2 IBW: [address] Assessment: (11/16/19) 74 YOM admitted for hematoma of R iliopsoas muscle. Pt seen today for LOS. Pt sleeping at time of visit. Pt's at bedside reports good appetite and po intake currently and COMPUTER AIDED DESIGN OPERATOR, noted 75-100% intake per chart. She denies any wt loss, GI distress, or difficulties chewing or swallowing. Pt discussed during am rounds, coumadin held currently. No PU per chart. LBM 11/16. Chart reviewed. Labs and meds reviewed. Will continue to monitor. Current Diet: Cardiac Malnutrition Evaluation (11/16/19) The patient does not meet criteria for a specified degree of malnutrition at this time. Will re-evaluate at follow-up as appropriate. Diet Education Needs Assessment: Diet education not indicated. Diet tolerance: tolerating po Nutrition Care Level: Low Signed: Юлия Mcwilliams RD, LD, [facility]
[2019-11-16] MEDS: HYDROCODONE/APAP 7.5MG-325MG 1 EA TAB PO PRN (16:34)
[2019-11-16] MEDS ORDERED: SOD PHOSPHATE/SOD BIPHOSPHATE ENEMA 132 ML BTL PR NR (17:00)
--- NOTE | 2019-11-16 17:00 | NUR ---
The pt. reports rectal pain due to unable to pass b m and a call was placed to the dr. for enema order.
--- NOTE | 2019-11-16 17:30 | NUR ---
The enema was given and the pt. advised to retain the product for as long as possible.
--- NOTE | 2019-11-16 19:02 | NUR ---
The pt. is finally started to have action from the enema given earlier. Bedside nurse report completed
[2019-11-16] MEDS: QUETIAPINE FUMARATE 25 MG TAB PO SCH (21:30)
[2019-11-16] MEDS: ATORVASTATIN 20 MG TAB PO SCH (21:30)
[2019-11-17] VITALS: BP 103/69
[2019-11-17 04:00] VITALS: BP 108/66
[2019-11-17] MEDS: FAMOTIDINE 20 MG TAB PO SCH (07:30)
[2019-11-17] MEDS: PANTOPRAZOLE SOD 40 MG TABEC PO SCH (07:30)
--- NOTE | 2019-11-17 07:30 | NUR ---
Received patient this morning, a/ox3, no distress, in bed, rounds completed call light within reach,
[2019-11-17 07:59] VITALS: BP 113/66
[2019-11-17] MEDS: Propylene Glycol/Peg 400 (Systane 0.3-0.4% Eye Drops) OP SCH (09:00)
[2019-11-17 09:20] VITALS: BP 113/66
[2019-11-17] MEDS: POTASSIUM CHLORIDE 10MEQ EA PO SCH (09:36)
[2019-11-17] MEDS: DUTASTERIDE 0.5 MG CAP PO SCH (09:36)
[2019-11-17] MEDS: SENNA-S TABLET PO SCH (09:36)
[2019-11-17] MEDS: FUROSEMIDE 40 MG TAB PO SCH (09:36)
[2019-11-17] MEDS: ACYCLOVIR 200 MG CAP PO SCH (09:36)
[2019-11-17] MEDS: AMIODARONE HCL 200 MG TAB PO SCH (09:36)
[2019-11-17] MEDS: DILTIAZEM HCL 180 MG CAP ER PO SCH (09:36)
[2019-11-17] MEDS: LORATADINE 10 MG TAB PO SCH (09:36)
[2019-11-17] MEDS: METOPROLOL TARTRATE 25 MG TAB PO SCH (09:37)
--- NOTE | 2019-11-18 04:34 | Discharge Summary ---
PRIMARY CARE PHYSICIAN: Dr. Boubacar Rodrigez. ESTHETICIAN SPA: Dr. Timothy Talbot. FINAL DIAGNOSES: 1. Status post right retroperitoneal bleed secondary to over anticoagulation with warfarin. 2. Acute blood loss anemia, stabilized. Hemoglobin and hematocrit of 10.6 and 32.2. 3. Baseline atrial fibrillation with history of mitral valve clipping. PLAN: The patient will be going home with Xarelto 15 mg daily. Discussed with the patient and spouse at bedside and along with the patient's son as well on the risks and benefits of taking the Xarelto due to that the patient's warfarin is difficult to adjust and the patient did not experience retroperitoneal bleed secondary to over anticoagulation. SUMMARY: The patient is a 74-year-old male, who came back into the hospital after discharged home with warfarin. The patient did not have his warfarin medication adjustment immediately as an outpatient, but difficult to do with respect to the warfarin as such fluctuation in treatment. The patient had a retroperitoneal bleed. His hemoglobin dropped down from 12.4 now to 10.6. It was prior at 9.9. The patient's bleeding has stopped. He is doing well. He is ambulatory. Pain has been in good control. The patient will go home today. He will resume his home medication except for warfarin. Adjustment of his medication has been made. The patient will take [place] p.r.n. for pain. Stool softener. Xarelto 15 mg daily. The patient to follow up with Dr. Timothy Talbot as planned. The patient is stable and discharged home today. MD GIULIANA Rushing/DOYLE /[id number]
== END 2019-11-17 10:45 | disposition home or self-care (01) | DRG 813 ==
LOC: ER 14:19 → ERHOLD 18:50 → MED/SURG 22:17
PROVIDERS: ADMIT Internal Medicine; ATTEND Internal Medicine
DX: D68.32 Hemorrhagic disorder due to extrinsic circulating anticoagulants (principal); D62 Acute posthemorrhagic anemia; I48.20 Chronic atrial fibrillation, unspecified; M79.81 Nontraumatic hematoma of soft tissue; R58 Hemorrhage, not elsewhere classified; T45.515A Adverse effect of anticoagulants, initial encounter; I48.91 Unspecified atrial fibrillation; Z79.01 Long term (current) use of anticoagulants; J44.9 Chronic obstructive pulmonary disease, unspecified
CPT/HCPCS: 36415; 74177; 80048; 80053; 81001; 82550; 82553; 82948; 83735; 84484; 85025; 85610; 85730; 86850; 86900; 87086; 97139; 99284; J2270; J2405; J3430; J7030; Q9967